=== PATIENT | female | born 1955 | race Caucasian/White ===

== ENCOUNTER 2023-01-19 07:14 | Outpatient (OUT) | payer BC, SELFPAY ==
--- NOTE | 2023-01-19 07:32 | MM_ITS ---
Patient Name: RICK DOCKERY MR#: [id number] : 1955 Exam Date: 01/19/2023 Ordering Doctor: SANDRINE JULIO CNP RADIOLOGY REPORT PROCEDURE: MM TOMOSYNTHESIS SCREENING BI COMPARISON: MG MAMM SCREEN 3D [place] CAD, 12/27/2021. MG MAMM SCREEN 3D [place] CAD, 09/03/2020. INDICATIONS: Screening Calculator Name NCI Breast Cancer Risk Assessment Tool 5 Year Breast Cancer Risk 3.80% Lifetime Breast Cancer Risk 14.00% Personal Breast Cancer No Personal Ovarian Cancer No Treatments None Family Cancers Aunt-maternal with breast cancer at age 83; Sister with breast cancer at age 67. LOCATION: [facility] BREAST COMPOSITION: Heterogeneously dense,which may obscure small masses. FINDINGS: DIAGNOSTIC CATEGORY 2--BENIGN FINDING: RIGHT BREAST: No significant suspicious finding. Scattered benign-appearing lymph nodes are present. No significant change has occurred. LEFT BREAST: No significant suspicious finding. Scattered benign-appearing lymph nodes are present. No significant change has occurred. RECOMMENDATIONS: ROUTINE MAMMOGRAM AND CLINICAL EVALUATION IN 12 MONTHS. PLEASE NOTE: A NORMAL MAMMOGRAM DOES NOT EXCLUDE THE POSSIBILITY OF BREAST CANCER. A CLINICALLY SUSPICIOUS PALPABLE LUMP SHOULD BE BIOPSIED. Dictated by: Chaparro Urbina M.D. on 01/23/2023 at 13:52 Approved by: Chaparro Urbina M.D. on 01/23/2023 at 13:55
== END 2023-01-19 07:15 | disposition home or self-care (01) ==
LOC: MAMMO 07:24
PROVIDERS: PCP Nurse Practitioner Family; Visit Provider Nurse Practitioner Family
DX: Z12.31 Encounter for screening mammogram for malignant neoplasm of breast (principal); Z80.3 Family history of malignant neoplasm of breast
CPT/HCPCS: 77063; 77067

== ENCOUNTER 2024-01-28 09:09 | Outpatient (OUT) | payer MEDICARE, SELFPAY ==
--- NOTE | 2024-01-28 09:18 | MM_ITS ---
Patient Name: RICK DOCKERY MR#: [id number] : 1955 Exam Date: 01/28/2024 Ordering Doctor: SANDRINE JULIO CNP RADIOLOGY REPORT PROCEDURE: MM TOMOSYNTHESIS SCREENING BI COMPARISON: MM TOMOSYNTHESIS SCREENING BI, 01/19/2023. MG MAMM SCREEN 3D [place] CAD, 12/27/2021. MG MAMM SCREEN 3D [place] CAD, 09/03/2020. INDICATIONS: Screening for malignant neoplasm Calculator Name NCI Breast Cancer Risk Assessment Tool 5 Year Breast Cancer Risk 3.90% Lifetime Breast Cancer Risk 13.50% Personal Breast Cancer No Personal Ovarian Cancer No Treatments None Family Cancers Aunt-maternal with breast cancer at age 83; Sister with breast cancer at age 67. LOCATION: [facility] BREAST COMPOSITION: The breasts are heterogeneously dense,which may obscure small masses. FINDINGS: DIAGNOSTIC CATEGORY 1--NEGATIVE. RIGHT BREAST: No significant suspicious finding. No significant change has occurred. LEFT BREAST: No significant suspicious finding. No significant change has occurred. RECOMMENDATIONS: ROUTINE MAMMOGRAM AND CLINICAL EVALUATION IN 12 MONTHS. PLEASE NOTE: A NORMAL MAMMOGRAM DOES NOT EXCLUDE THE POSSIBILITY OF BREAST CANCER. A CLINICALLY SUSPICIOUS PALPABLE LUMP SHOULD BE BIOPSIED. Dictated by: Chaparro Urbina M.D. on 01/28/2024 at 16:04 Approved by: Chaparro Urbina M.D. on 01/28/2024 at 16:08
--- OUTSIDE RECORDS SUMMARY | 2024-01-28 09:32 | XMS_ITS | CCD ---
Author Organization [facility] ion Partnership [facility] Care Team Providers Care Baseball Glove Stuffer Name Role Phone Maurice Asher Unavailable [phone] MAURICE ASHER Attending Unavailable MAURICE ASHER Referring Unavailable MAURICE ASHER Primary Care Unavailable Maurice Asher Primary Care Provider Maurice Asher Primary Care Provider Maurice Asher MD Primary Care Provider [phone] Maurice Asher MD Unavailable Maurice Asher MD Unavailable Geoffrey Doll DO Primary Care Provider Geoffrey Doll DO Primary Care Provider Maurice Asher MD Unavailable LAVON, GEOFFREY SNEHAL Primary Care Unavailable FILEMON PICHARDO Attending Unavailable LAVONGEOFFREY Primary Care Unavailable LAVONGEOFFREY Admitting Unavailable Maurice Asher MD Unavailable [phone] Lavon DO, Geoffrey Snehal Unavailable Lavonlety KRAMER, Geoffrey Snehal Unavailable MAURICE ASHER Attending Unavailable MAURICE ASHER Primary Care Unavailable LAVONGEOFFREY Attending Unavailable LAVNOGEOFFREY Attending Unavailable LAVON, GEOFFREY SNEHAL Primary Care Unavailable LAVONGEOFFREY Attending Unavailable LAVON, GEOFFREY SNEHAL Primary Care Unavailable LAVON, GEOFFREY GERBER Attending Unavailable LAVON, GEOFFREY SNEHAL Primary Care Unavailable SANDRINE JULIO Attending Unavailable DR GEOVANNY RAMIRES V Consulting Unavailable SUMANTH, SANDRINE Admitting Unavailable SUMANTH, SANDRINE Consulting Unavailable SUMANTH, SANDRINE Admitting Unavailable SUMANTH, SANDRINE Attending Unavailable DR RADHA FITZGERALD Consulting Unavailable SUMANTH, SANDRINE Primary Care Unavailable SUMANTH, SANDRINE Attending Unavailable SUMANTH, SANDRINE Consulting Unavailable SUMANTH, SANDRINE Primary Care Unavailable SUMANTH, SANDRINE Admitting Unavailable SUMANTH, SANDRINE Attending Unavailable SUMANTH, SANDRINE Admitting Unavailable GEOFFREY DOLL Attending Unavailable GEOFFREY DOLL Primary Care Unavailable SNEHAL VORA Attending Unavailable Allergies Allergy Classification Reported Allergen(s) Allergy Type Date of Onset Reaction(s) Facility (16 sources) Formaldehyde; Translations: [FORMALDEHYDE] Drug Allergy 12-10-2020 Rash [facility] Medications Current Medications Medication Drug Class(es) Dates Sig (Normalized) Sig (Original) amoxicillin 875 mg / clavulanate 125 mg oral tablet (2 sources) Penicillin-class Antibacterial Start: 05-01-19 End: 05-11-19 21 take 1 tablet by mouth twice daily amoxicillin-clavulanat e (AUGMENTIN) 875-125 mg per tablet Take 1 (one) tablet by mouth 2 (two) times a day for 10 days . 20 tablet 0 04/30/2020 05/10/2020 Active Azithromycin (10 sources) Macrolide Antimicrobial Start: 04-07-19 21 take 2 tablets by mouth once daily, then take 1 tablet by mouth, then take 1 tablet by mouth once daily azithromycin (Z-GEREMIAS) 5 day dose pack Take two tablets by mouth on day 1, then one tablet by mouth daily until finished. . 6 tablet 0 04/07/2020 Active benzonatate 100 mg oral capsule (2 sources) Non-narcotic Antitussive Start: 05-01-19 End: 05-08-19 21 take 1 capsule by mouth three times daily as needed for cough benzonatate (TESSALON) 100 MG capsule Take 1 (one) capsule (100 mg total) by mouth 3 (three) times a day as needed for cough . 20 capsule 0 04/30/2020 05/07/2020 Active famotidine 20 mg oral tablet (1 source) Histamine-2 Receptor Antagonist take 1 tablet by mouth twice daily famotidine (PEPCID) 20 MG tablet Take 20 mg by mouth 2 (two) times a day . 0 Active hydroCHLOROthiazide 25 mg oral tablet (20 sources) Thiazide Diuretic Start: 08-27-19 End: 01-21-20 take 1 tablet by mouth once daily hydroCHLOROthiazide (HYDRODIURIL) 25 MG tablet Take 1 (one) tablet (25 mg total) by mouth daily . 90 tablet 3 01/25/2021 01/20/2022 Active Start: 04-27-2017 End: 02-22-2019 take 1 tablet by mouth once daily hydroCHLOROthiazide (HYDRODIURIL) 25 MG tablet Take 1 (one) tablet (25 mg total) by mouth daily. 30 tablet 2 11/14/2017 02/22/2018 Discontinued hydrOXYzine pamoate 25 mg oral capsule (20 sources) Antihistamine Start: 10-14-2019 End: 10-12-2021 take 1 capsule by mouth three times daily as needed for anxiety hydrOXYzine (VISTARIL) 25 MG capsule Take 1 (one) capsule (25 mg total) by mouth 3 (three) times a day as needed for itching or anxiety . 90 capsule 1 06/01/2021 Active melatonin 5 mg oral tablet (13 sources) melatonin 5 mg Tab Take by mouth . 0 Active meloxicam 15 mg oral tablet (3 sources) Nonsteroidal Anti-inflammatory Drug Start: 08-15-2016 End: 08-15-2017 take 1 tablet by mouth once daily as needed for pain meloxicam (MOBIC) 15 MG tablet Take 1 (one) tablet (15 mg total) by mouth daily as needed for pain. 30 tablet 2 08/15/2016 08/15/2017 Active 24 hr metoprolol succinate 50 mg extended release oral tablet (6 sources) beta-Adrenergic Tod Start: 06-24-2021 End: 03-21-2022 take 1 tablet by mouth once daily metoprolol succinate (TOPROL-XL) 50 MG 24 hr tablet Take 1 (one) tablet (50 mg total) by mouth daily . 90 tablet 2 06/24/2021 03/21/2022 Active Start: 03-12-2017 End: 03-12-2018 take 0.5 tablet by mouth once daily metoprolol succinate (TOPROL-XL) 50 MG 24 hr tablet Take 0.5 (one-half) tablet (25 mg total) by mouth daily. 30 tablet 2 03/12/2017 03/12/2018 Active Start: 12-12-2016 End: 03-12-2017 take 1 tablet by mouth once daily metoprolol succinate (TOPROL-XL) 25 MG 24 hr tablet Take 1 (one) tablet (25 mg total) by mouth daily. 30 tablet 5 12/12/2016 03/12/2017 Discontinued montelukast 10 mg oral tablet (20 sources) Leukotriene Receptor Antagonist Start: 03-15-2020 End: 01-25-2022 take 1 tablet by mouth once daily montelukast (SINGULAIR) 10 mg tablet Take 1 (one) tablet (10 mg total) by mouth nightly . 90 tablet 3 01/25/2021 01/25/2022 Active omeprazole 40 mg delayed release oral capsule (18 sources) Proton Pump Inhibitor Start: 02-22-2018 End: 04-29-2021 take 1 capsule by mouth once daily omeprazole (PRILOSEC) 40 MG capsule Take 1 (one) capsule (40 mg total) by mouth daily . 30 capsule 0 04/29/2020 04/29/2021 Active traZODone hydrochloride 50 mg oral tablet (20 sources) Serotonin Reuptake Inhibitor Start: 05-05-2021 End: 06-04-2021 take 1 tablet by mouth once daily traZODone (DESYREL) 50 MG tablet Take 1 (one) tablet (50 mg total) by mouth nightly . 90 tablet 0 05/05/2021 Active Start: 09-25-2019 End: 03-09-2021 take 1 tablet by mouth once daily traZODone (DESYREL) 50 MG tablet Take 1 (one) tablet (50 mg total) by mouth nightly . 90 tablet 0 02/07/2021 Active Completed/Discontinued Medications Medication Drug Class(es) Dates Sig (Normalized) Sig (Original) cetirizine hydrochloride 10 mg oral tablet (13 sources) Histamine-1 Receptor Antagonist End: 06-24-2021 take 1 tablet by mouth once daily cetirizine (ZYRTEC) 10 MG tablet Take 10 mg by mouth daily . 0 06/24/2021 Discontinued diclofenac sodium 0.01 mg/mg topical gel (2 sources) Nonsteroidal Anti-inflammatory Drug Start: 02-22-2018 End: 09-25-2019 diclofenac sodium 1 % Gel Apply 2 (two) g topically 4 (four) times a day . 1 Tube 2 02/22/2018 09/25/2019 Discontinued escitalopram 5 mg oral tablet (5 sources) Serotonin Reuptake Inhibitor Start: 02-22-2018 End: 09-25-2019 take 1 tablet by mouth once daily escitalopram oxalate (LEXAPRO) 5 MG tablet Take 1 (one) tablet (5 mg total) by mouth daily . 30 tablet 2 07/01/2018 09/25/2019 Discontinued Start: 03-12-2017 End: 03-12-2018 take 1 tablet by mouth once daily escitalopram oxalate (LEXAPRO) 10 MG tablet Take 1 (one) tablet (10 mg total) by mouth daily . 30 tablet 3 01/31/2018 02/22/2018 Discontinued propranolol hydrochloride 20 mg oral tablet (13 sources) beta-Adrenergic Tod Start: 12-27-2020 End: 06-24-2021 take 1 tablet by mouth twice daily propranoloL (INDERAL) 20 MG tablet Indications: Anxiety state , Primary hypertension Take 1 (one) tablet (20 mg total) by mouth 2 (two) times a day . 60 tablet 1 02/02/2021 06/24/2021 Discontinued Problems Active Problems Problem Classification Problem Date Documented Da te Episodic/Chronic Anxiety disorders (20 sources) Anxiety state; Translations: [Generalized anxiety disorder] Onset: 04-06-2014 07-14-2015 Chronic Esophageal disorders (15 sources) Gastro-esophageal reflux disease without esophagitis; Translations: [Laryngopharyngeal reflux] Onset: 12-12-2020 12-12-2020 Chronic Essential hypertension (20 sources) Benign essential hypertension; Translations: [Essential hypertension] Onset: 12-12-2020 12-12-2020 Chronic Fluid and electrolyte disorders (5 sources) Hyponatremia; Translations: [Hypo-osmolality and hyponatremia] Onset: 01-23-2022 Episodic Immunizations and screening for infectious disease (2 sources) Immunization due; Translations: [Encounter for immunization] Episodic Miscellaneous mental health disorders (1 source) Primary insomnia; Translations: [Primary Insomnia] Chronic Other acquired deformities (2 sources) Enlargement of neck; Translations: [Neck fullness] Episodic Other lower respiratory disease (1 source) Dry cough; Translations: [Dry cough] Episodic Other nutritional; endocrine; and metabolic disorders (1 source) Hypercalcemia; Translations: [Serum calcium elevated] Chronic Other nutritional; endocrine; and metabolic disorders (1 source) Hypocalcemia; Translations: [HYPOCALCEMIA] Onset: 01-28-2022 Chronic Other screening for suspected conditions (not mental disorders or infectious disease) (7 sources) Patient encounter status; Translations: [Encounter for screening for diseases of the blood and blood-forming organs and certain disorders involving the immune mechanism] Onset: 01-04-2022 Episodic Other upper respiratory disease (20 sources) Allergic rhinitis; Translations: [Allergic rhinitis, unspecified] Onset: 01-20-2012 07-14-2015 Chronic Residual codes; unclassified (1 source) Family history of malignant neoplasm of breast; Translations: [FAMILY HX MALIG NEOPLASM OF BREAST] Onset: 01-04-2022 Episodic Screening or history of mental health and substance abuse (20 sources) Tobacco user; Translations: [Nicotine dependence, unspecified, uncomplicated] Onset: 07-07-2008 07-14-2015 Chronic Thyroid disorders (13 sources) Multinodular goiter; Translations: [Nontoxic multinodular goiter] Onset: 12-12-2020 12-12-2020 Chronic Unclassified (1 source) Patient encounter status; Translations: [Annual physical exam] Past or Other Problems Problem Classification Problem Date Documented Da te Episodic/Chronic Allergic reactions (14 sources) Vesicular eczema of hands and/or feet; Translations: [Vesicular eczema] Onset: 07-07-2008 07-14-2015 Episodic Other circulatory disease (20 sources) Elevated blood-pressure reading without diagnosis of hypertension; Translations: [Elevated blood-pressure reading, without diagnosis of hypertension] Onset: 09-29-2015 Resolved: 12-12-2020 09-29-2015 Episodic Other connective tissue disease (20 sources) Tendinitis; Translations: [Enthesopathy, unspecified] Onset: 08-15-2016 08-15-2016 Episodic Other gastrointestinal disorders (20 sources) Abdominal bloating; Translations: [Abdominal distension (gaseous)] Onset: 09-29-2015 09-29-2015 Episodic Other skin disorders (18 sources) Vesicular eczema; Translations: [Dyshidrosis [pompholyx]] Onset: 07-07-2008 07-14-2015 Episodic Results Test Name Value Interpretation Reference Range Facility PROF 14(COMP METB)on 022 Albumin [Mass/Vol] 3.8 g/dL Normal 3.4-5.0 [facility] Comment on above: Performed By: #### C MP #### [facility] [address] [address] [address] Shavonne Abraham Albumin/Globulin [Mass ratio] 0.9 {ratio} Normal [facility] Comment on above: Performed By: #### C MP #### [facility] [address] [address] [address] Shavonne Abraham ALP [Catalytic activity/Vol] 140 U/L Critically high 46-116 [facility] Comment on above: Performed By: #### C MP #### [facility] [address] [address] [address] Shavonne Abraham ALT [Catalytic activity/Vol] 27 U/L Normal 14-59 [facility] Comment on above: Performed By: #### C MP #### [facility] [address] [place] [address] Dr. Shavonne Abraham Anion gap [Moles/Vol] 14.3 mmol/L Normal [facility] Comment on above: Performed By: #### C MP #### [facility] [address] [place] [address] Dr. Shavonne Abraham AST [Catalytic activity/Vol] 24 U/L Normal 15-37 [facility] Comment on above: Performed By: #### C MP #### [facility] [address] [place] [address] Dr. Shavonne Abraham Bilirubin [Mass/Vol] 0.4 mg/dL Normal 0.2-1.0 [facility] Comment on above: Performed By: #### C MP #### [facility] [address] [place] [address] Dr. Shavonne Abraham Calcium [Mass/Vol] 9.8 mg/dL Normal 8.5-10.1 [facility] Comment on above: Performed By: #### C MP #### [facility] [address] [place] [address] Dr. Shavonne Abraham Chloride [Moles/Vol] 99 mmol/L Normal 98-107 [facility] Comment on above: Performed By: #### C MP #### [facility] [address] [address] [address] Shavonne Abraham CO2 [Moles/Vol] 25.9 mmol/L Normal 21.0-32.0 [facility] Comment on above: Performed By: #### C MP #### [facility] [address] [place] [address] Dr. Shavonne Abraham Creatinine [Mass/Vol] 0.87 mg/dL Normal 0.55-1.[address] [facility] Comment on above: Performed By: #### C MP #### [facility] [address] [address] [address] Shavonne Abraham EGFR-AF SPANISH >60 Normal >=60 [facility] Comment on above: Performed By: #### C MP #### [facility] [address] [place] [address] Dr. Shavonne Abraham EGFR-NON AF SPANISH >60 Normal >=[address] [facility] Comment on above: Performed By: #### C MP #### [facility] [address] [address] [address] Shavonne Abraham Globulin (S) [Mass/Vol] 4.2 g/dL Normal [facility] Comment on above: Performed By: #### C MP #### [facility] [address] [address] [address] Shavonne Abraham Glucose [Mass/Vol] 90 mg/dL Normal 74-106 [facility] Comment on above: Performed By: #### C MP #### [facility] [address] [place] [address] Dr. Shavonne Abraham Potassium [Moles/Vol] 4.2 mmol/L Normal 3.5-5.[address] [facility] Comment on above: Performed By: #### C MP #### [facility] [address] [place] [address] Dr. Shavonne Abraham Protein [Mass/Vol] 8.0 g/dL Normal 6.4-8.2 [facility] Comment on above: Performed By: #### C MP #### [facility] [address] [place] [address] Dr. Shavonne Abraham Sodium [Moles/Vol] 135 mmol/L Critically low 136-[address] [facility] Comment on above: Performed By: #### C MP #### [facility] [address] [place] [address] Dr. Shavonne Abraham Urea nitrogen [Mass/Vol] 15.0 mg/dL Normal 7.0-18.0 [facility] Comment on above: Performed By: #### C MP #### [facility] [address] [place] [address] Dr. Shavonne Abraham Urea nitrogen/Creatinine [Mass ratio] 17.2 mg/mg Normal [facility] Comment on above: Performed By: #### C MP #### [facility] [address] [place] [address] Dr. Shavonne Abraham PROF 14(COMP METB)on 022 Albumin [Mass/Vol] 3.8 g/dL Normal 3.4-5.0 [facility] Comment on above: Performed By: #### C MP #### [facility] [address] [place] [address] Dr. Shavonne Abraham Albumin/Globulin [Mass ratio] 0.9 {ratio} Normal [facility] Comment on above: Performed By: #### C MP #### [facility] [address] [place] [address] Dr. Shavonne Abraham ALP [Catalytic activity/Vol] 146 U/L Critically high 46-116 [facility] Comment on above: Performed By: #### C MP #### [facility] [address] [place] [address] Dr. Shavonne Abraham ALT [Catalytic activity/Vol] 43 U/L Normal 14-59 [facility] Comment on above: Performed By: #### C MP #### [facility] [address] [place] [address] Dr. Shavonne Abraham Anion gap [Moles/Vol] 11.9 mmol/L Normal [facility] Comment on above: Performed By: #### C MP #### [facility] [address] [place] [address] Dr. Shavonne Abraham AST [Catalytic activity/Vol] 44 U/L Critically high 15-37 [facility] Comment on above: Performed By: #### C MP #### [facility] [address] [address] [address] Shavonne Abraham Bilirubin [Mass/Vol] 0.2 mg/dL Normal 0.2-1.0 [facility] Comment on above: Performed By: #### C MP #### [facility] [address] [address] [address] Shavonne Abraham Calcium [Mass/Vol] 9.2 mg/dL Normal 8.5-10.1 [facility] Comment on above: Performed By: #### C MP #### [facility] [address] [address] [address] Shavonne Abraham Chloride [Moles/Vol] 89 mmol/L Critically low 98-107 [facility] Comment on above: Performed By: #### C MP #### [facility] [address] [address] [address] Shavonne Abraham CO2 [Moles/Vol] 28.3 mmol/L Normal 21.0-32.0 [facility] Comment on above: Performed By: #### C MP #### [facility] [address] [address] [address] Shavonne Abraham Creatinine [Mass/Vol] 0.94 mg/dL Normal 0.55-1.02 [facility] Comment on above: Performed By: #### C MP #### [facility] [address] [address] [address] Shavonne Abraham EGFR-AF SPANISH >60 Normal >=60 [facility] Comment on above: Performed By: #### C MP #### [facility] [address] [address] [address] Shavonne Abraham EGFR-NON AF SPANISH 60 mL/min/1.73m2 Normal >=60 [facility] Comment on above: Performed By: #### C MP #### [facility] [address] [address] [address] Shavonne Abraham Globulin (S) [Mass/Vol] 4.1 g/dL Normal [facility] Comment on above: Performed By: #### C MP #### [facility] [address] [address] [address] Shavonne Abraham Glucose [Mass/Vol] 111 mg/dL Critically high 74-106 [facility] Comment on above: Performed By: #### C MP #### [facility] [address] [address] [address] Shavonne Abraham Potassium [Moles/Vol] 3.2 mmol/L Critically low 3.5-5.1 [facility] Comment on above: Performed By: #### C MP #### [facility] [address] [address] [address] Shavonne Abraham Protein [Mass/Vol] 7.9 g/dL Normal 6.4-8.2 [facility] Comment on above: Performed By: #### C MP #### [facility] [address] [address] [address] Shavonne Abraham Sodium [Moles/Vol] 126 mmol/L Critically low 136-[address] [facility] Comment on above: Performed By: #### C MP #### [facility] [address] [address] [address] Shavonne Abraham Urea nitrogen [Mass/Vol] 19.0 mg/dL Critically high 7.0-18.0 [facility] Comment on above: Performed By: #### C MP #### [facility] [address] [address] [address] Shavonne Abraham Urea nitrogen/Creatinine [Mass ratio] 20.2 mg/mg Normal [facility] Comment on above: Performed By: #### C MP #### [facility] [address] [address] [address] Shavonne Abraham INSULINon 12-28-2021 Insulin 13.7 uIU/mL Normal 2.6-24.9 [facility] Comment on above: Performed By: #### I NSULIN #### [facility] [address] [address] [address] Shavonne Abraham CBC AUTO DIFFon 12-27-2021 BASO # 0.1 103/ul Normal 0.0-0.1 [facility] Comment on above: Performed By: #### C BC #### [facility] [address] [address] [address] Shavonne Abraham Basophils/100 WBC (Bld) 0.8 % Normal 0.2-2.0 [facility] Comment on above: Performed By: #### C BC #### [facility] [address] [address] [address] Shavonne Abraham EO # 0.6 103/ul Normal 0.0-0.[address] [facility] Comment on above: Performed By: #### C BC #### [facility] [address] [address] [address] Shavonne Abraham Eosinophils/100 WBC (Bld) 7.1 % Critically high 0.9-7.0 [facility] Comment on above: Performed By: #### C BC #### [facility] [address] [place] [address] Dr. Shavonne Abraham Erythrocyte distribution width (RBC) [Ratio] 13.2 % Normal 11.0-15.0 [facility] Comment on above: Performed By: #### C BC #### [facility] [address] [place] [address] Dr. Shavonne Abraham Hematocrit (Bld) [Volume fraction] 40.3 % Normal 36.0-48.0 [facility] Comment on above: Performed By: #### C BC #### [facility] [address] [place] [address] Dr. Shavonne Abraham Hemoglobin (Bld) [Mass/Vol] 13.5 g/dL Normal 12.0-16.0 [facility] Comment on above: Performed By: #### C BC #### [facility] [address] [place] [address] Dr. Shavonne Abraham IG # 0.01 10e3/ul Normal 0.00-0.03 [facility] Comment on above: Performed By: #### C BC #### [facility] [address] [place] [address] Dr. Shavonne Abraham IG % 0.1 % Normal 0.0-0.[address] [facility] Comment on above: Performed By: #### C BC #### [facility] [address] [place] [address] Dr. Shavonne Abraham LYMPH # 1.9 103/ul Normal 1.2-3.8 [facility] Comment on above: Performed By: #### C BC #### [facility] [address] [place] [address] Dr. Shavonne Abraham Lymphocytes/100 WBC (Bld) 24.4 % Normal 20.5-60.0 [facility] Comment on above: Performed By: #### C BC #### [facility] [address] [place] [address] Dr. Shavonne Abraham MANUAL DIFF REQ NO Normal [facility] Comment on above: Performed By: #### C BC #### [facility] [address] [place] [address] Dr. Shavonne Abraham MCH (RBC) [Entitic mass] 28.7 pg Normal 26.7-34.0 [facility] Comment on above: Performed By: #### C BC #### [facility] [address] [place] [address] Dr. Shavonne Abraham MCHC (RBC) [Mass/Vol] 33.5 g/dL Normal 29.9-35.[address] [facility] Comment on above: Performed By: #### C BC #### [facility] [address] [place] [address] Dr. Shavonne Abraham MCV (RBC) [Entitic vol] 85.7 fL Normal 81.0-99.0 [facility] Comment on above: Performed By: #### C BC #### [facility] [address] [place] [address] Dr. Shavonne Abraham MONO # 0.6 103/ul Normal 0.3-0.[address] [facility] Comment on above: Performed By: #### C BC #### [facility] [address] [place] [address] Dr. Shavonne Abraham Monocytes/100 WBC (Bld) 8.0 % Normal 1.7-12.[address] [facility] Comment on above: Performed By: #### C BC #### [facility] [address] [place] [address] Dr. Shavonne Abraham NEUT # 4.6 103/ul Normal 1.4-6.[address] [facility] Comment on above: Performed By: #### C BC #### [facility] [address] [place] [address] Dr. Shavonne Abraham Neutrophils/100 WBC (Bld) 59.6 % Normal 43.0-75.[address] [facility] Comment on above: Performed By: #### C BC #### [facility] [address] [place] [address] Dr. Shavonne Abraham Platelet mean volume (Bld) [Entitic vol] 10.6 fL Normal 9.5-13.[address] [facility] Comment on above: Performed By: #### C BC #### [facility] [address] [place] [address] Dr. Shavonne Abraham PLT 272 103/ul Normal 150-[address] [facility] Comment on above: Performed By: #### C BC #### [facility] [address] [place] [address] Dr. Shavonne Abraham RBC 4.70 106/ul Normal 4.20-5.[address] [facility] Comment on above: Performed By: #### C BC #### [facility] [address] [place] [address] Dr. Shavonne Abraham WBC 7.8 103/ul Normal 4.0-11.[address] [facility] Comment on above: Performed By: #### C BC #### [facility] [address] [place] [address] Dr. Shavonne Abraham FREE THYROXINE INDEX T7on FTI 2.80 Normal 1.30-4.[address] [facility] Comment on above: Performed By: #### L IPID, T7, TSH, CMP #### [facility] [address] [place] [address] Dr. Shavonne Abraham T3U 35.0 % Normal 30.0-39.[address] [facility] Comment on above: Performed By: #### L IPID, T7, TSH, CMP #### [facility] [address] [address] [address] Shavonne Abraham T4 [Mass/Vol] 8.00 ug/dL Normal 4.80-13.90 [facility] Comment on above: Performed By: #### L IPID, T7, TSH, CMP #### [facility] [address] [address] [address] Shavonne Abraham GLYCOHEMOGLOBIN A1Con 2021 ADA RECOMMENDATION SEE BELOW Normal [facility] Comment on above: Result Comment: ADA RECOMMENDED LIMIT 4.0 - 6.0 ADA THERAPEUTIC TARGET < 7.0 ACTION SUGGESTED > 7.0 Performed By: #### A 1C ####[facility] [address] [address]Dr. Shavonne Abraham Glucose [Mass/Vol] 117 mg/dL Normal [facility] Comment on above: Performed By: #### A 1C ####[facility] [address] [address]Dr. Shavonne Abraham HbA1c (Bld) [Mass fraction] 5.7 % Normal 4.5-6.2 [facility] Comment on above: Performed By: #### A 1C ####[facility] [address] [address]Dr. Shavonne Abraham IRONon 12-27-2021 Iron [Mass/Vol] 38.0 ug/dL Critically low 50.0-170.0 [facility] Comment on above: Performed By: #### I TOYIN #### [facility] [address] [address] [address] Shavonne Abraham LIPID PROFILEon 12-27-2021 CHOL-HDL RATIO NORM SEE BELOW Normal [facility] Comment on above: Result Comment: 3.3 - 4.4 LOW RISK 4.4 - 7.1 AVERAGE RISK 7.1 - 11.0 MODERATE RISK >11.0 HIGH RISK Performed By: #### L IPID, T7, TSH, CMP #### [facility] [address] [address] [address] Shavonne Abraham Cholesterol [Mass/Vol] 193 mg/dL Normal <=[address] [facility] Comment on above: Performed By: #### L IPID, T7, TSH, CMP #### [facility] [address] [address] [address] Shavonne Abraham Cholesterol in HDL [Mass/Vol] 76 mg/dL Critically high 40-60 [facility] Comment on above: Performed By: #### L IPID, T7, TSH, CMP #### [facility] [address] [address] [address] Shavonne Abraham Cholesterol in LDL [Mass/Vol] 110.2 mg/dL Normal [facility] Comment on above: Performed By: #### L IPID, T7, TSH, CMP #### [facility] [address] [address] [address] Shavonne Abraham Cholesterol.total/Cho lesterol in HDL [Mass ratio] 2.5 {ratio} Normal [facility] Comment on above: Performed By: #### L IPID, T7, TSH, CMP #### [facility] [address] [address] [address] Shavonne Abraham HDL NORMAL > or = 60 mg/dl - LOW CARDIOVASCULAR RISK <40 mg/dl - HIGH CARDIOVASCULAR RISK Normal [facility] Comment on above: Performed By: #### L IPID, T7, TSH, CMP #### [facility] [address] [address] [address] Shavonne Abraham LDL CALC NORMAL SEE BELOW Normal [facility] Comment on above: Result Comment: <100 mg/dl OPTIMAL 100 - 129 mg/dl NEAR OR ABOVE OPTIMAL 130 - 159 mg/dl BORDERLINE HIGH 160 - 189 mg/dl HIGH >190 mg/dl VERY HIGH Performed By: #### L IPID, T7, TSH, CMP #### [facility] [address] [address] [address] Shavonne Abraham Triglyceride [Mass/Vol] 34 mg/dL Normal <=150 [facility] Comment on above: Performed By: #### L IPID, T7, TSH, CMP #### [facility] [address] [address] [address] Shavonne Abraham VLDL CALC 6.8 mg/dL Normal [facility] Comment on above: Performed By: #### L IPID, T7, TSH, CMP #### [facility] [address] [address] [address] Shavonne Abraham MG MAMM SCREEN 3D [place] CADon 12-27-2021 MG MAMM SCREEN 3D [place] CAD Patient: SHARA DOCKERY Exam Date: 12/27/2021 : 1955 Gender:F Ordering : SANDRINE JULIO [facility] Admission #: [id number] Family : Order #: [id number] CLICK HERE TO VIEW EXAM RADIOLOGY REPORT PROCEDURE: MAMMOGRAM SCREENING 3D BILATERAL CAD COMPARISON: MG MAMM SCREEN 3D [place] CAD, 09/03/2020. INDICATIONS: Screening mammography Calculator Name NCI Breast Cancer Risk Assessment Tool 5 Year Breast Cancer Risk 3.70% Lifetime Breast Cancer Risk 14.40% Personal Breast Cancer No Personal Ovarian Cancer No Treatments None Family Cancers Aunt-maternal with breast cancer at age 83; Sister with breast cancer at age 67. LOCATION: [facility] BREAST COMPOSITION: Heterogeneously dense,which may obscure small masses. FINDINGS: DIAGNOSTIC CATEGORY 2--BENIGN FINDING. NO CHANGE FROM COMPARISON. Scattered benign-appearing nodules are present. Scattered benign-appearing calcifications are present. Scattered benign-appearing lymph nodes are present. RIGHT BREAST: No significant suspicious finding. Linear scar marker LEFT BREAST: No significant suspicious finding. RECOMMENDATIONS: ROUTINE MAMMOGRAM AND CLINICAL EVALUATION IN 12 MONTHS. PLEASE NOTE: A NORMAL MAMMOGRAM DOES NOT EXCLUDE THE POSSIBILITY OF BREAST CANCER. A CLINICALLY SUSPICIOUS PALPABLE LUMP SHOULD BE BIOPSIED. Dictated by: Geovanny Ramires MD on 01/04/2022 at 07:06 Approved by: Geovanny Ramires MD on 01/04/2022 at 07:08 Normal [facility] PROF 14(COMP METB)on 022 Albumin [Mass/Vol] 3.9 g/dL Normal 3.4-5.0 [facility] Comment on above: Performed By: #### L IPID, T7, TSH, CMP #### [facility] [address] [place], [place] [address] Dr. Shavonne Abraham Albumin/Globulin [Mass ratio] 1.0 {ratio} Normal [facility] Comment on above: Performed By: #### L IPID, T7, TSH, CMP #### [facility] [address] [address] [address] Shavonne Abraham ALP [Catalytic activity/Vol] 150 U/L Critically high 46-116 [facility] Comment on above: Performed By: #### L IPID, T7, TSH, CMP #### [facility] [address] [address] [address] Shavonne Abraham ALT [Catalytic activity/Vol] 24 U/L Normal 14-59 [facility] Comment on above: Performed By: #### L IPID, T7, TSH, CMP #### [facility] [address] [address] [address] Shavonne Abraham Anion gap [Moles/Vol] 9.3 mmol/L Normal [facility] Comment on above: Performed By: #### L IPID, T7, TSH, CMP #### [facility] [address] [place] [address] Dr. Shavonne Abraham AST [Catalytic activity/Vol] 20 U/L Normal 15-37 [facility] Comment on above: Performed By: #### L IPID, T7, TSH, CMP #### [facility] [address] [address] [address] Shavonne Abraham Bilirubin [Mass/Vol] 0.3 mg/dL Normal 0.2-1.0 [facility] Comment on above: Performed By: #### L IPID, T7, TSH, CMP #### [facility] [address] [address] [address] Shavonne Abraham Calcium [Mass/Vol] 9.8 mg/dL Normal 8.5-10.1 [facility] Comment on above: Performed By: #### L IPID, T7, TSH, CMP #### [facility] [address] [address] [address] Shavonne Abraham Chloride [Moles/Vol] 93 mmol/L Critically low 98-107 [facility] Comment on above: Performed By: #### L IPID, T7, TSH, CMP #### [facility] [address] [address] [address] Shavonne Abraham CO2 [Moles/Vol] 31.6 mmol/L Normal 21.0-32.0 [facility] Comment on above: Performed By: #### L IPID, T7, TSH, CMP #### [facility] [address] [place] [address] Dr. Shavonne Abraham Creatinine [Mass/Vol] 0.90 mg/dL Normal 0.55-1.02 [facility] Comment on above: Performed By: #### L IPID, T7, TSH, CMP #### [facility] [address] [place] [address] Dr. Shavonne Abraham EGFR-AF SPANISH >60 Normal >=60 [facility] Comment on above: Performed By: #### L IPID, T7, TSH, CMP #### [facility] [address] [place] [address] Dr. Shavonne Abraham EGFR-NON AF SPANISH >60 Normal >=60 [facility] Comment on above: Performed By: #### L IPID, T7, TSH, CMP #### [facility] [address] [place] [address] Dr. Shavonne Abraham Globulin (S) [Mass/Vol] 4.1 g/dL Normal [facility] Comment on above: Performed By: #### L IPID, T7, TSH, CMP #### [facility] [address] [place] [address] Dr. Shavonne Abraham Glucose [Mass/Vol] 109 mg/dL Critically high 74-106 [facility] Comment on above: Performed By: #### L IPID, T7, TSH, CMP #### [facility] [address] [place] [address] Dr. Shavonne Abraham Potassium [Moles/Vol] 3.9 mmol/L Normal 3.5-5.1 [facility] Comment on above: Performed By: #### L IPID, T7, TSH, CMP #### [facility] [address] [place] [address] Dr. Shavonne Abraham Protein [Mass/Vol] 8.0 g/dL Normal 6.4-8.2 [facility] Comment on above: Performed By: #### L IPID, T7, TSH, CMP #### [facility] [address] [place], [place] [address] Dr. Shavonne Abraham Sodium [Moles/Vol] 130 mmol/L Critically low 136-[address] [facility] Comment on above: Performed By: #### L IPID, T7, TSH, CMP #### [facility] [address] [address] [address] Shavonne Abraham Urea nitrogen [Mass/Vol] 17.0 mg/dL Normal 7.0-18.0 [facility] Comment on above: Performed By: #### L IPID, T7, TSH, CMP #### [facility] [address] [address] [address] Shavonne Abraham Urea nitrogen/Creatinine [Mass ratio] 18.9 mg/mg Normal [facility] Comment on above: Performed By: #### L IPID, T7, TSH, CMP #### [facility] [address] [address] [address] Shavonne Abraham TSHon 12-27-2021 TSH 0.964 uIU/mL Normal 0.358-3.740 [facility] Comment on above: Performed By: #### L IPID, T7, TSH, CMP #### [facility] [id number] Shavonne Abraham US THYROID ONLYon 10-10-2019 US THYROID ONLY EXAMINATION: US THYROID ONLY HISTORY: ORDERING SYSTEM PROVIDED HISTORY: swelling of neck, TECHNOLOGIST PROVIDED HISTORY: Illness/Other Reason for exam: neck fullness Cancer History: n Surgery, RadiationHistory: n Encounter Type: Initial Additional signs and symptoms: n ORDERING SYSTEM PROVIDED DIAGNOSIS CODES: R22.1 Neck fullness COMPARISON: None. TECHNIQUE: Grayscale and color imaging of the thyroid performed. FINDINGS: Right thyroid measures 5.8 x 2.1 x 1.9 cm and the left measures 4.7 x 1.8 x 1.5 cm. Isthmus measures 0.4 cm in AP dimension. Hypoechoic TI-RADS category 4 nodule within the inferior right thyroid measures 0.7 x 0.8 x 0.5 cm. There is additional hypoechoic solid TI-RADS category 4 nodule in the mid right thyroid measuring 0.6 x 0.5 x 0.5 cm. Hypoechoic TI-RADS category 4 nodule in the upper right thyroid measures 0.5 x 0.5 x 0.4 cm. Within the left thyroid is a isoechoic TI-RADS category 3 solid nodule involving the midportion of the thyroid measuring 1.1 x 1.0 x 1.0 cm. There is a benign cystic-appearing nodule within the mid left thyroid which measures approximately 0.4 x 0.5 x 0.3 cm. Background thyroid parenchyma is relatively homogeneous. There is a prominent benign-appearing lymph node within the left neck, level II. The lymph node measures 0.6 x 1.0 x 1.3 cm containing echogenic fat. A prominent benign-appearing lymph node on the right side at level I measures 1.9 x 1.5 x 0.8 cm. Prominent lymph node in the left neck, level I with echogenic fatty hilum measures 2.9 x 1.7 x 0.7 cm. IMPRESSION: Multiple thyroid nodules as detailed in the body of the report. None of the nodules meet criteria for biopsy. Bilateral neck prominent benign-appearing lymph nodes all of which have a short axis dimension of less than 1 cm. The [employer] TI-RADS committee's white paper recommendations for thyroid lesions classified as TR3 (mildly suspicious) are listed below: > than or equal to 1.5 cm. Follow-up ultrasound in 1, 3, and 5 years. > than or equal to 2.5 cm. FNA. J. Am Joshua [employer]iol 2017; 14:587-595. [employer] TI-RADS committee's white paper recommendations for thyroid lesions classified as TR4 (moderately suspicious) are listed below: > than or equal to 1.0 cm. Follow-up ultrasound in 1, 2, 3, and 5 years. > than or equal to 1.5 cm. FNA. J. Am Joshua [employer]iol 2017; 14:587-595. SYJ/tde Workstation ID: [id number] Dictated by: CLAIRE CROUCH on SunOct 10, 2019 4:38:44 PM EDT Transcribed by: GIDEON NOGUERA on SunOct 10, 2019 5:13:07 PM EDT Finalized by: CLAIRE CROUCH on SunOct 10, 2019 5:34:09 PM EDT Normal [facility] Comment on above: Order Comment: Injur y/Trauma or Illness?:Illness/Other How long have you had these symptoms (acute/chronic)?:Chronic 1.5 yrs Reason for exam?:neck fullness History of cancer?:n Surgeries, chemotherapy, or radiation?:n Type of Exam?:Initial Additional signs and symptoms?:n US Thyroid Onlyon 10-10-2019 Multiple thyroid nodules as detailed in the body of the report. None of the nodules meet criteria for biopsy. Bilateral neck prominent benign-appearing lymph nodes all of which have a short axis dimension of less than 1 cm. The [employer] TI-RADS committee's white paper recommendations for thyroid lesions classified as TR3 (mildly suspicious) are listed below: > than or equal to 1.5 cm. Follow-up ultrasound in 1, 3, and 5 years. > than or equal to 2.5 cm. FNA. J. Am Joshua [employer]iol 2017; 14:587-595. [employer] TI-RADS committee's white paper recommendations for thyroid lesions classified as TR4 (moderately suspicious) are listed below: > than or equal to 1.0 cm. Follow-up ultrasound in 1, 2, 3, and 5 years. > than or equal to 1.5 cm. FNA. J. Am Joshua [employer]iol 2017; 14:587-595. [employer] Workstation ID: [id number] [facility] EXAMINATION: US THYROID ONLY HISTORY: ORDERING SYSTEM PROVIDED HISTORY: swelling of neck, TECHNOLOGIST PROVIDED HISTORY: Illness/Other Reason for exam: neck fullness Cancer History: n Surgery, RadiationHistory: n Encounter Type: Initial Additional signs and symptoms: n ORDERING SYSTEM PROVIDED DIAGNOSIS CODES: R22.1 Neck fullness COMPARISON: None. TECHNIQUE: Grayscale and color imaging of the thyroid performed. FINDINGS: Right thyroid measures 5.8 x 2.1 x 1.9 cm and the left measures 4.7 x 1.8 x 1.5 cm. Isthmus measures 0.4 cm in AP dimension. Hypoechoic TI-RADS category 4 nodule within the inferior right thyroid measures 0.7 x 0.8 x 0.5 cm. There is additional hypoechoic solid TI-RADS category 4 nodule in the mid right thyroid measuring 0.6 x 0.5 x 0.5 cm. Hypoechoic TI-RADS category 4 nodule in the upper right thyroid measures 0.5 x 0.5 x 0.4 cm. Within the left thyroid is a isoechoic TI-RADS category 3 solid nodule involving the midportion of the thyroid measuring 1.1 x 1.0 x 1.0 cm. There is a benign cystic-appearing nodule within the mid left thyroid which measures approximately 0.4 x 0.5 x 0.3 cm. Background thyroid parenchyma is relatively homogeneous. There is a prominent benign-appearing lymph node within the left neck, level II. The lymph node measures 0.6 x 1.0 x 1.3 cm containing echogenic fat. A prominent benign-appearing lymph node on the right side at level I measures 1.9 x 1.5 x 0.8 cm. Prominent lymph node in the left neck, level I with echogenic fatty hilum measures 2.9 x 1.7 x 0.7 cm. [facility] Alvaro [facility] - 10/10/2019 5:36 PM EDT EXAMINATION: US THYROID ONLY HISTORY: ORDERING SYSTEM PROVIDED HISTORY: swelling of neck, TECHNOLOGIST PROVIDED HISTORY: Illness/Other Reason for exam: neck fullness Cancer History: n Surgery, RadiationHistory: n Encounter Type: Initial Additional signs and symptoms: n ORDERING SYSTEM PROVIDED DIAGNOSIS CODES: R22.1 Neck fullness COMPARISON: None. TECHNIQUE: Grayscale and color imaging of the thyroid performed. FINDINGS: Right thyroid measures 5.8 x 2.1 x 1.9 cm and the left measures 4.7 x 1.8 x 1.5 cm. Isthmus measures 0.4 cm in AP dimension. Hypoechoic TI-RADS category 4 nodule within the inferior right thyroid measures 0.7 x 0.8 x 0.5 cm. There is additional hypoechoic solid TI-RADS category 4 nodule in the mid right thyroid measuring 0.6 x 0.5 x 0.5 cm. Hypoechoic TI-RADS category 4 nodule in the upper right thyroid measures 0.5 x 0.5 x 0.4 cm. Within the left thyroid is a isoechoic TI-RADS category 3 solid nodule involving the midportion of the thyroid measuring 1.1 x 1.0 x 1.0 cm. There is a benign cystic-appearing nodule within the mid left thyroid which measures approximately 0.4 x 0.5 x 0.3 cm. Background thyroid parenchyma is relatively homogeneous. There is a prominent benign-appearing lymph node within the left neck, level II. The lymph node measures 0.6 x 1.0 x 1.3 cm containing echogenic fat. A prominent benign-appearing lymph node on the right side at level I measures 1.9 x 1.5 x 0.8 cm. Prominent lymph node in the left neck, level I with echogenic fatty hilum measures 2.9 x 1.7 x 0.7 cm. IMPRESSION: Multiple thyroid nodules as detailed in the body of the report. None of the nodules meet criteria for biopsy. Bilateral neck prominent benign-appearing lymph nodes all of which have a short axis dimension of less than 1 cm. The [employer] TI-RADS committee's white paper recommendations for thyroid lesions classified as TR3 (mildly suspicious) are listed below: > than or equal to 1.5 cm. Follow-up ultrasound in 1, 3, and 5 years. > than or equal to 2.5 cm. FNA. J. Am Joshua Radiol 2017; 14:587-595. [employer] TI-RADS committee's white paper recommendations for thyroid lesions classified as TR4 (moderately suspicious) are listed below: > than or equal to 1.0 cm. Follow-up ultrasound in 1, 2, 3, and 5 years. > than or equal to 1.5 cm. FNA. J. Am Joshua Radiol 2017; 14:587-595. SYJ/sandiee Workstation ID: [id number] [facility] Comprehensive Metabolic Pane dereje 04-27-2017 Alanine aminotransferase (ALT) 34 U/L Invalid Interpretation Code 0 - 40 U/L [facility] Albumin 4.7 g/dL Invalid Interpretation Code 3.2 - 5.2 g/dL [facility] Alkaline phosphatase (ALP) 111 U/L Invalid Interpretation Code 40 - 150 U/L [facility] Anion gap 20 mmol/L Invalid Interpretation Code 10 - 20 mmol/L [facility] Aspartate aminotransferase (AST) 26 U/L Invalid Interpretation Code 0 - 45 U/L [facility] Bicarbonate (HCO3) 25 mmol/L Invalid Interpretation Code 21 - 32 mmol/L [facility] Bilirubin (total) 0.3 mg/dL Invalid Interpretation Code 0 - 1.3 mg/dL [facility] BUN/Creatinine Ratio 22.4 mg/mg High 10.0 - 20.0 [facility] Calcium 10.0 mg/dL Invalid Interpretation Code 8.4 - 10.2 mg/dL [facility] Chloride 101 mmol/L Invalid Interpretation Code 98 - 108 mmol/L [facility] Creatinine 0.76 mg/dL Invalid Interpretation Code 0.4 - 1.1 mg/dL [facility] eGFR (non-black) The eGFR should be used for monitoring renal function only and not for medication dosing. Invalid Interpretation Code [facility] eGFR (non-black) 86 mL/min/{1.73_m2} Invalid Interpretation Code >=60 [facility] Glucose 106 mg/dL High 65 - 99 mg/dL [facility] Potassium 5.4 mmol/L High 3.5 - 5.1 mmol/L [facility] Protein 7.3 g/dL Invalid Interpretation Code 6 - 8 g/dL [facility] Sodium 141 mmol/L Invalid Interpretation Code 135 - 145 mmol/L [facility] Urea nitrogen 17 mg/dL Invalid Interpretation Code 8 - 25 mg/dL [facility] Hemoglobin A1con 04-27-2017 Glucose 114 mg/dL Invalid Interpretation Code 68 - 126 mg/dL [facility] HbA1c 5.6 % Invalid Interpretation Code 4.2 - 6 % [facility] Interpretation and review of laboratory results Normal Invalid Interpretation Code [facility] Lipid Panelon 04-27-2017 Cholesterol 202 mg/dL High 100 - 199 mg/dL [facility] Cholesterol to HDL Ratio 2.8 {ratio} Invalid Interpretation Code [facility] HDL Cholesterol 73 mg/dL High 40 - 59 mg/dL [facility] HDL Cholesterol 129 mg/dL Invalid Interpretation Code [facility] Interpretation and review of laboratory results Abnormal Invalid Interpretation Code [facility] LDL Cholesterol 114 mg/dL Invalid Interpretation Code 10 - 130 mg/dL [facility] Triglyceride 73 mg/dL Invalid Interpretation Code 30 - 150 mg/dL [facility] ECG 12 Leadon 03-12-2017 Atrial Rate Invalid Interpretation Code [employer] Work Phone: P Wade Invalid Interpretation Code [facility] Work Phone: P-R Interval Invalid Interpretation Code [facility] Work Phone: Q-T Interval Invalid Interpretation Code [employer] Work Phone: Q-T Interval (corrected) Invalid Interpretation Code [employer] Work Phone: QRS Duration Invalid Interpretation Code [employer] Work Phone: QTC Calculation (Bezet) Invalid Interpretation Code [employer] Work Phone: R Wade Invalid Interpretation Code [employer] Work Phone: T Wade Invalid Interpretation Code [employer] Work Phone: Ventricular Rate Invalid Interpretation Code [employer] Work Phone: Vital Signs Date Time Vital Sign Value Performing [facility] 06-24-2021 10:26-0400 Body height 152.4 cm Geoffrey Doll DO Work Phone: [facility] 06-24-2021 10:26-0400 Body mass index (BMI) [Ratio] 24.61 kg/m2 Geoffrey Doll DO Work Phone: [facility] 06-24-2021 10:26-0400 Body weight 57.15 kg Geoffrey Doll DO Work Phone: [facility] 06-24-2021 10:26-0400 Diastolic blood pressure 95 mm[Hg] Geoffrey Doll DO Work Phone: [facility] 06-24-2021 10:26-0400 Heart rate 105 /min Geoffrey Doll DO Work Phone: [facility] 06-24-2021 10:26-0400 SaO2% (BldA) [Mass fraction] 98 % Geoffrey Doll DO Work Phone: [facility] 06-24-2021 10:26-0400 Systolic blood pressure 195 mm[Hg] Geoffrey Doll DO Work Phone: [facility] 09-25-2019 10:29-0400 BP Diastolic 84 mm[Hg] Maurice Asher [facility] 09-25-2019 10:29-0400 BP Systolic 132 mm[Hg] [facility] 09-25-2019 09:49-0400 BMI (Body Mass Index) 25.78 kg/m2 [facility] 09-25-2019 09:49-0400 Body weight 59.88 kg [facility] 09-25-2019 09:49-0400 Height 152.4 cm [facility] 09-25-2019 09:49-0400 Pulse (Heart Rate) 104 /min [facility] 09-25-2019 09:49-0400 Pulse Oximetry 98 % [facility] 09-25-2019 09:49-0400 Respiratory Rate 16 /min [facility] 02-22-2018 15:21-0500 BMI (Body Mass Index) 25.78 kg/m2 [facility] 02-22-2018 15:21-0500 BP Diastolic 90 mm[Hg] [facility] 02-22-2018 15:21-0500 BP Systolic 147 mm[Hg] [facility] 02-22-2018 15:21-0500 Height 152.4 cm [facility] 02-22-2018 15:21-0500 Pulse (Heart Rate) 101 /min [facility] 02-22-2018 15:21-0500 Pulse Oximetry 98 % [facility] 02-22-2018 15:21-0500 Respiratory Rate 16 /min [facility] 02-22-2018 15:21-0500 Weight 59.88 kg [facility] 04-27-2017 09:23-0500 BP Diastolic 102 mm[Hg] [facility] 04-27-2017 09:23-0500 BP Systolic 158 mm[Hg] [facility] 04-27-2017 08:47-0500 BMI (Body Mass Index) 26.29 kg/m2 [facility] 04-27-2017 08:47-0500 Body Temperature 97.39 [degF] [facility] 04-27-2017 08:47-0500 Height 152.4 cm [facility] 04-27-2017 08:47-0500 Pulse (Heart Rate) 75 /min [facility] 04-27-2017 08:47-0500 Pulse Oximetry 98 % [facility] 04-27-2017 08:47-0500 [facility] 61.05 [facility]12[facility] 13:56-0500 BP Diastolic 88 mm[Hg] [facility] Work [facility]: 03-12-2017 13:56-0500 BP Systolic 144 mm[Hg] [facility]: 03-12-2017 13:56-0500 Pulse (Heart Rate) 96 /min Maurice Asher [facility] Work Phone: 03-12-2017 12:51-0500 BMI (Body Mass Index) 24.8 kg/m2 Maurice Asher [facility] Work Phone: 03-12-2017 12:51-0500 Body Temperature 98.4 [degF] Maurice Asher [facility] Work Phone: 03-12-2017 12:51-0500 Height 152.4 cm Maurice Asher [facility] Work Phone: 03-12-2017 12:51-0500 Pulse Oximetry 99 % Maurice Asher [facility] Work Phone: 03-12-2017 12:51-0500 Weight 57.61 kg Maurice Asher [facility] Work Phone: Encounters Encounter Date Encounter Type Care Provider Facility Start: 01-22-2023 End: 01-22-2023 ambulatory SNEHAL VORA Not Available Start: 09-13-2022 ambulatory GEOFFREY DOLL [facility] Start: 02-06-2022 End: 02-07-2022 ambulatory SANDRINE JULIO Facility:[facility] Start: 01-23-2022 End: 01-24-2022 ambulatory SANDRINE JULIO Facility:[facility] Start: 01-06-2022 ambulatory SANDRINE JULIO Facility: [facility] Start: 01-04-2022 Encounter for genera l adult medical examination without abnormal findings SANDRINE JULIO [facility] Start: 12-27-2021 End: 12-28-2021 ambulatory SANDRINE JULIO Facility:[facility] Start: 12-27-2021 End: 12-28-2021 Encounter for general adult medical examination without abnormal findings SANDRINE JULIO Facility:[facility] Start: 06-24-2021 End: 06-24-2021 ambulatory GEOFFREY SORENSENILY LAVON [facility] Start: 06-24-2021 End: 06-24-2021 Office outpatient visit 25 minutes Geoffrey Doll DO Work Phone: [facility] Comment on above: Laryngopharyngeal re flux (LPR); Primary hypertension; ILDEFONSO (generalized anxiety disorder); Immunization due; Need for shingles vaccine Start: 06-08-2021 Orders Only Geoffrey Amaral ache DO Work Phone: [facility] Comment on above: Primary hypertension (Primary Dx); Screening for deficiency anemia; Screening for diabetes mellitus (DM) Start: 06-01-2021 Refill Geoffrey Amaral ache DO Work Phone: [facility] Start: 05-04-2021 Refill Lorena Katcali [place] Lázaro SIDE HEMMER Work Phone: [facility] Start: 03-24-2021 Refill Geoffrey Amaral ache DO Work Phone: [facility] Start: 02-23-2021 Refill Geoffrey Amaral ache DO Work Phone: [facility] Start: 02-10-2021 Refill Geoffrey Amaral ache DO Work Phone: [facility] Start: 02-07-2021 Refill Geoffrey Amaral ache DO Work Phone: [facility] Start: 02-01-2021 Refill Geoffrey Amaral ache DO Work Phone: [facility] Comment on above: Anxiety state; Primary hypertension Start: 01-11-2021 End: 01-11-2021 ambulatory GEOFFREYJacy GERBER LAVON [facility] Start: 01-10-2021 Patient encounter procedure Go nikky Pichardo DO Work Phone: [facility] Start: 12-27-2020 End: 12-27-2020 ambulatory GEOFFREY DOLL [facility] Start: 12-10-2020 End: 12-14-2020 ambulatory GEOFFREY DOLL [facility] Start: 12-10-2020 End: 12-10-2020 ambulatory GEOFFREY DOLL [facility] Start: 11-19-2020 ambulatory GEOFFREY DOLL [facility] Start: 10-12-2020 Refill Maurice Asher MD Work Phone: [facility] Start: 09-03-2020 ambulatory MAURICE ASHER [facility] Start: 08-03-2020 End: 08-03-2020 Refill Maurice Asehr MD Work Phone: [facility] Start: 06-02-2020 End: 06-02-2020 Refill Maurice Asher Work Phone: [facility] Start: 05-05-2020 End: 05-05-2020 Orders Only Maurice Asher Work Phone: [facility] Start: 04-30-2020 End: 04-30-2020 Orders Only Maurice Asher Work Phone: [facility] Start: 04-29-2020 End: 04-29-2020 Orders Only Maurice Asher Work Phone: [facility] Start: 04-07-2020 End: 04-07-2020 Orders Only Maurice Asher Work Phone: [facility] Start: 03-15-2020 End: 03-15-2020 Office outpatient visit 15 minutes Maurice Asher Work Phone: [facility] Comment on above: Dry cough (Primary D x) Start: 10-14-2019 End: 10-14-2019 Documentation procedure Maurice Asher Work Phone: [facility] Start: 10-10-2019 End: 10-11-2019 Patient encounter procedure MAURICE ASHER [facility] Start: 10-10-2019 End: 10-10-2019 Subsequent hospital visit by physician Maurice Asher Work Phone: [facility] Comment on above: Neck fullness Start: 09-30-2019 End: 09-30-2019 Documentation procedure Maurice Asher Work Phone: [facility] Start: 09-25-2019 End: 09-25-2019 Periodic preventive med est patient 40-64yrs Maurice Asher Work Phone: [facility] Comment on above: Annual physical exam (Primary Dx); Primary Insomnia; Neck fullness Start: 02-22-2018 End: 02-22-2018 Office outpatient visit 25 minutes Maurice Asher Work Phone: [facility] Comment on above: Gastroesophageal ref lux disease without esophagitis (Primary Dx); Benign essential HTN; Generalized anxiety disorder Start: 04-27-2017 End: 04-27-2017 Ambulatory Maurice Asher Work Phone: [facility] Start: 04-27-2017 Office/outpatient vi sit, est, level 4 Maurice Asher Work Phone: [facility] Start: 03-12-2017 Office/outpatient vi sit, est, level 4 Maurice sAher Work Phone: [facility] Procedures Date Procedure Procedure Detail Performing Clinician Start: 01-10-2021 Colonoscopy Geoffrey evans DO Work Phone: Start: 12-10-2020 Adult depression scr eening assessment Filemon Pichardo DO Work Phone: Start: 09-03-2020 Mammography Maurice jerez MD Work Phone: Start: 10-10-2019 Us soft tissue head & neck real time imge docm Maurice Asher Work Phone: Start: 09-25-2019 Adult depression scr eening assessment Maurice Asher Start: 05-10-2019 Mammography Maurice jerez Start: 04-25-2017 Mammography Maurice jerez Start: 11-21-2013 Microscopic observat ion [Identifier] in Cervix by Cyto stain Maurice Asher Plan of Treatment Date Care Activity Detail Author Start: 01-10-2031 Screening for malign ant neoplasm of colon [facility] Start: 05-28-2024 Tetanus vaccination [facility] Start: 12-26-2021 End: 12-26-2021 Patient encounter procedure 12/26/2021 Office Visit Primary Care Geoffrey Doll DO [address] [place] [address] [facility] Start: 12-10-2021 Depression screening using PHQ-9 (Patient Health Questionnaire 9) score Depression Screening (PHQ-2/9) [facility] Start: 10-27-2021 Influenza vaccination Sequenti al Influenza Vaccine (Season Ended) [facility] Start: 09-03-2021 Screening for malign ant neoplasm of breast Mammogram [facility] Start: 06-24-2021 End: 06-24-2021 Patient encounter procedure 06/24/2021 Office Visit Primary Care Geoffrey Doll DO [address] [place] [address] [facility] Start: 02-07-2021 End: 02-07-2021 Telemedicine consultation with patient 02/07/2021 Telemedicine Primary Care Geoffrey Doll DO [address] [place] [address] [facility] Start: 01-10-2021 End: 01-10-2021 Patient encounter procedure 01/10/2021 Office Visit Gastroenterology Filemon Pichardo DO [address] [address] [facility] Start: 12-10-2020 End: 12-10-2020 Patient encounter procedure 12/10/2020 Office Visit Primary Care Geoffrey Doll DO [address] [place] [address] [facility] Start: 10-27-2020 Influenza vaccination [facility] Start: 09-24-2020 Adolescent depressio n screening assessment Depression Screening (PHQ9) [facility] Start: 09-24-2020 Depression screening using PHQ-9 (Patient Health Questionnaire 9) score Depression Screening (PHQ9) [facility] Start: 09-24-2020 History and physical examination, annual for health maintenance Wellness Visit [facility] Start: 06-30-2020 COVID-19 Vaccine (2 - Booster for Laura series) COVID-19 Vaccine (2 - Booster for Laura series) [facility] Start: 05-21-2020 End: 05-21-2020 Telemedicine 05/21/2020 Telemedicine Primary Care [place] [address] [phone] [facility] Start: 05-09-2020 [facility] Start: 04-29-2020 End: 04-29-2020 Telemedicine 04/29/2020 Telemedicine Urgent Care [facility] Start: 10-28-2019 Influenza vaccinatio n given Sequential Influenza Vaccine (#1) [facility] Start: 04-25-2018 Protein mass conc MAMMOGRAM [facility] Start: 04-25-2018 Screening mammography [facility] Start: 10-27-2017 Influenza vaccination [facility] Start: 2017 Zoster vacc, sc ZOSTER VACCINE [facility] Start: 11-21-2016 Screening for malign ant neoplasm of cervix PAP SMEAR [facility] Start: 10-27-2016 Influenza vaccination SEQUENTI AL INFLUENZA VACCINE (#1) [facility] Work Phone: Start: 08-22-2016 History and physical examination, annual for health maintenance Wellness Visit [facility] Start: 10-18-2015 Pneumococcal Vaccine : Ped or At-Risk (1 of 2 - PPSV23) Pneumococcal Vaccine: Ped or At-Risk (1 of 2 - PPSV23) [facility] Start: 06-11-2007 Administration of he rpes zoster vaccine Zoster Vaccines (1 of 2) [facility] Start: 06-11-2007 Screening for malign ant neoplasm of colon [facility] Start: 06-11-2007 ZOSTER VACCINES (1 of 2) ZOSTER VACC SAVANNAH (1 of 2) [facility] Start: 06-11-1975 Hepatitis C antibody , confirmatory test Hepatitis C Screening [facility] Start: 06-11-1975 Hepatitis C screening Hepatitis C Sc reening [facility] Start: 1973 COVID-19 Vaccine (1 of 2) COVID-19 Vaccine (1 of 2) [facility] Start: 1973 COVID-19 Vaccine (1) COVID-19 Vaccin e (1) [facility] Start: 1972 HIV screening HIV Screening [facility] Start: 1969 COVID-19 Vaccine (1) COVID-19 Vaccin e (1) [facility] Start: 1957 Screening for malign ant neoplasm of colon Colorectal Cancer Screening: Colonoscopy [facility] Start: 1955 HEPATITIS C SCREENING HEPATITIS C SC [facility] Work Phone: Start: 1955 Screening colonoscopy COLONOSCOPY [facility] Work Phone: End: 09-24-2020 Basic metabolic 2000 panel Basic Metabolic Panel Lab Routine Annual physical exam 1 Occurrences starting 09/25/2019 until 09/24/2020 [facility] Comment on above: 1 Occurrences starti ng 09/25/2019 until 09/24/2020 Basic metabolic 2000 panel Basic Metabolic Panel Lab Routine Annual physical exam 09/25/2019 10:28 AM EDT [facility] End: 09-29-2020 Basic metabolic 2000 panel Basic Metabolic Panel Lab Routine Hyponatremia 1 Occurrences starting 09/30/2019 until 09/29/2020 [facility] Comment on above: 1 Occurrences starti ng 09/30/2019 until 09/29/2020 End: 09-29-2020 Calcium.ionized [Mass/Vol] Calcium, Ionized Lab Routine Serum calcium elevated 1 Occurrences starting 09/30/2019 until 09/29/2020 [facility] Comment on above: 1 Occurrences starti ng 09/30/2019 until 09/29/2020 End: 09-24-2020 Complete blood count (hemogram) panel - Blood by Automated count CBC Lab Routine Annual physical exam 1 Occurrences starting 09/25/2019 until 09/24/2020 [facility] Comment on above: 1 Occurrences starti ng 09/25/2019 until 09/24/2020 Complete blood count (hemogram) panel - Blood by Automated count CBC Lab Routine Annual physical exam 09/25/2019 10:28 AM EDT [facility] End: 06-08-2022 Complete blood count with white cell differential, manual CBC and Differential Lab Routine Screening for deficiency anemia 1 Occurrences starting 06/08/2021 until 06/08/2022 [facility] Comment on above: 1 Occurrences starti ng 06/08/2021 until 06/08/2022 End: 06-08-2022 Comprehensive metabolic 2000 panel - Serum or Plasma Comprehensive Metabolic Panel Lab Routine Primary hypertension 1 Occurrences starting 06/08/2021 until 06/08/2022 [facility] Comment on above: 1 Occurrences starti ng 06/08/2021 until 06/08/2022 End: 06-08-2022 Lipid 1996 panel - Serum or Plasma Lipid Panel Lab Routine Screening for diabetes mellitus (DM) 1 Occurrences starting 06/08/2021 until 06/08/2022 [facility] Work Phone: Comment on above: 1 Occurrences starti ng 06/08/2021 until 06/08/2022 End: 09-24-2020 TSH Qn TSH with Reflex Free T4 Lab Routine Annual physical exam 1 Occurrences starting 09/25/2019 until 09/24/2020 [facility] Comment on above: 1 Occurrences starti ng 09/25/2019 until 09/24/2020 TSH Qn TSH with Reflex Free T4 Lab Routine Annual physical exam 09/25/2019 10:28 AM EDT [facility] End: 09-24-2020 US Thyroid Only US Thyroid Only Imaging Routine Neck fullness 1 Occurrences starting 09/25/2019 until 09/24/2020 [facility] Comment on above: 1 Occurrences starti ng 09/25/2019 until 09/24/2020 Immunizations Immunization Date Immunization Notes Care Provider Fa colt 08-23-2015 pneumococcal conjuga te vaccine, 13 valent; Translations: [PNEUMOCOCCAL CONJUGATE 13-VALENT (PREVNAR 13)] Maurice Asher [facility]th 05-28-2014 tetanus toxoid, redu miah diphtheria toxoid, and acellular pertussis vaccine, adsorbed Maurice Asher [facility] Payers Date Payer Category Payer Unknown xxxxxxxxxxxx 2. [id number] 2014 Unknown [id number] 2. [id number] 2014 Unknown [id number] 1. [id number] 2014 Unknown [id number] 1959 Self-pay 1959 Unknown [id number] 1957 Unknown [id number] 2.16.8 [id number] 1957 Unknown [id number] 2.16. [id number] 1957 Unknown [id number] 2.16. [id number] 1957 Unknown [id number] 2.16. [id number] 1957 Unknown [id number] 2.16. [id number] 1957 Unknown [id number] 2.16. [id number] 1957 Unknown [id number] 2.16. [id number] 1957 Unknown [id number] 2.16. [id number] 1957 Unknown [id number] 2.16.84 [id number] 1957 Unknown [id number] 2.16.84 [id number] 1957 Unknown [id number] 2.16.84 [id number] 1957 Unknown [id number] 2.16.84 [id number] 1957 Unknown [id number] 2.16. [id number] 1957 Unknown [id number] Social History Date Type Detail Facility Start: 04-27-2017 End: 03-15-2020 Tobacco smoking status NHIS Current every day smoker [facility] Start: 1955 Sex Assigned At Not on file [facility] Work Phone: Start: 09-25-2019 End: 12-10-2020 Alcohol intake Current drinker of alcohol (finding) [facility] Start: 02-07-2016 Alcohol Comment On occasion [facility] Start: 06-13-2021 End: 06-23-2021 Exposure to SARS-CoV-2 (event) Not sure [facility] Start: 09-25-2019 End: 12-10-2020 Tobacco use and exposure Never used [facility] Start: 03-15-2020 End: 12-10-2020 Alcohol intake [facility] Start: 12-10-2020 Tobacco smoking stat us MNIS Ex-smoker [facility] History of tobacco use Cigarette Smoker [facility] Start: 12-10-2020 History SDOH Social Connections Membership 2 [facility] Start: 12-10-2020 History SDOH Social Connections Meetings 1 [facility] Start: 12-10-2020 History SDOH Financial 5 [facility] Start: 12-10-2020 Tobacco Comment has not smoked for 5 days as of 12/10/20 [facility] Clinical Notes 10-12-2020 to 06-24-2021 Geoffrey Doll DO - 06/24/2021 10:15 AM EDTTelephone Encounter - Dawna Sharp MA - 06/01/2021 9:44 AM EDTTelephone Encounter - Dawna Sharp MA - 06/01/2021 9:44 AM EDT Note Date & Type Note Facility 06-24-2021 History of Presen t illness Narrative Subjective Subjective HPI: Shara Jacobsmitz is a 66 y.o. female who presents to the Clinic on 06/24/21 for Chief Complaint Patient presents with Annual Exam Stated shes not doing any blood work today due to insurance. LPR Not on PPI. Using Pepcid with good control. ILDEFONSO and HTN Added propanolol to hydrochlorothiazide. Not taking propanolol any longer. Using hydroxyzine PRN but most of the time 3 times per week. Health Maintenance Topic Date Due HIV Screening Never done Hepatitis C Screening Never done Zoster Vaccines (1 of 2) Never done Pap Smear 11/21/2016 Wellness Visit 09/24/2020 Mammogram 09/03/2021 Sequential Influenza Vaccine (Season Ended) 2021 Depression Screening (PHQ-2/9) 12/10/2021 Tetanus: Every 10yrs 05/28/2024 Colorectal Cancer Screening 01/10/2031 COVID-19 Vaccine Completed Pneumococcal Vaccine: Ped or At-Risk Aged Out Smoker Health Maintenance (if applicable) Annual low dose screening CT: (if age 50-80 has 20 pack-year hx, and quit <15 years ago) Health Maintenance has been reviewed and updated. Review of Systems All other systems reviewed and negative, pertinent positives and negatives mentioned above. Past Medical History: Diagnosis Date Allergic rhinitis Anxiety Dyshidrotic eczema hands Fibrocystic breast Nicotine dependence Tongue disorder Past Surgical History: Procedure Laterality Date TUBAL LIGATION Family History Problem Relation Age of Onset Hypertension Mother Diabetes Mother Coronary artery disease Mother 70 Allergies Mother Coronary artery disease Father 70 Irritable bowel syndrome Father Hypertension Father MELISSA disease Father Breast cancer Maternal Aunt Social History Socioeconomic History Marital status: Tobacco Use Smoking status: Former Smoker Packs/day: 0.30 Years: 73.00 Pack years: 21.90 Types: Cigarettes Smokeless tobacco: Never Used Tobacco comment: has not smoked for 5 days as of 12/10/20 Vaping Use Vaping Use: Never used Substance and Sexual Activity Alcohol use: Yes Alcohol/week: 0.0 standard drinks Comment: On occasion Drug use: No Sexual activity: Yes Partners: Male Social Determinants of Health Financial Resource Strain: Low Risk Difficulty of Paying Living Expenses: Not hard at all Food Insecurity: No Food Insecurity Worried About Running Out of Food in the Last Year: Never true Ran Out of Food in the Last Year: Never true Transportation Needs: No Transportation Needs Lack of Transportation (Medical): No Lack of Transportation (Non-Medical): No Social Connections: Unknown Active Member of Clubs or Organizations: No Attends Club or Organization Meetings: Never Personal and surgical history personally reviewed. Family history and social history personally reviewed. Family history is not pertinent other than noted in HPI. Current Outpatient Medications on File Prior to Visit Medication Sig Dispense Refill hydroCHLOROthiazide (HYDRODIURIL) 25 MG tablet Take 1 (one) tablet (25 mg total) by mouth daily . 90 tablet 3 hydrOXYzine (VISTARIL) 25 MG capsule Take 1 (one) capsule (25 mg total) by mouth 3 (three) times a day as needed for itching or anxiety . 90 capsule 1 montelukast (SINGULAIR) 10 mg tablet Take 1 (one) tablet (10 mg total) by mouth nightly . 90 tablet 3 traZODone (DESYREL) 50 MG tablet Take 1 (one) tablet (50 mg total) by mouth nightly . 90 tablet 0 melatonin 5 mg Tab Take by mouth . [DISCONTINUED] cetirizine (ZYRTEC) 10 MG tablet Take 10 mg by mouth daily . [DISCONTINUED] propranoloL (INDERAL) 20 MG tablet Take 1 (one) tablet (20 mg total) by mouth 2 (two) times a day . 60 tablet 1 No current facility-administered medications on file prior to visit. Objective Objective Blood pressure (!) 195/95, pulse (!) 105, height 5', weight 57.2 kg (126 lb), SpO2 98 %. Wt Readings from Last 3 Encounters: 06/24/21 57.2 kg (126 lb) 12/10/20 57.2 kg (126 lb) 09/25/19 59.9 kg (132 lb) Body mass index is 24.61 kg/m . Physical Exam Constitutional: General: She is not in acute distress. Appearance: She is well-developed. HENT: Head: Normocephalic and atraumatic. Eyes: Conjunctiva/sclera: Conjunctivae normal. Pupils: Pupils are equal, round, and reactive to light. Cardiovascular: Rate and Rhythm: Normal rate. Heart sounds: No murmur heard. No friction rub. No gallop. Pulmonary: Effort: No respiratory distress. Breath sounds: Normal breath sounds. No wheezing or rales. Abdominal: General: Bowel sounds are normal. There is no distension. Musculoskeletal: Cervical back: Neck supple. Skin: General: Skin is warm and dry. Findings: No erythema. Neurological: Mental Status: She is alert and oriented to person, place, and time. Psychiatric: Mood and Affect: Mood is anxious. Behavior: Behavior normal. Thought Content: Thought content normal. Labs reviewed including: Lab Results Component Value Date WBC 8.16 12/10/2020 HGB 13.0 12/10/2020 HCT 40.3 12/10/2020 MCV 87.6 12/10/2020 PLT 326 12/10/2020 Lab Results Component Value Date NA 138 12/10/2020 K 5.6 (H) 12/10/2020 CL 100 12/10/2020 BUN 12 12/10/2020 CREATININE 0.88 12/10/2020 GLUCOSE 100 (H) 12/10/2020 Lab Results Component Value Date CHOL 192 12/10/2020 HDL 75 12/10/2020 TRIG 61 12/10/2020 Lab Results Component Value Date HGBA1C 5.6 04/27/2017 Lab Results Component Value Date TSH 0.78 09/25/2019 I have personally reviewed labs. Assessment & Plan Assessment and Plan Diagnoses and all orders for this visit: Laryngopharyngeal reflux (LPR) Primary hypertension ILDEFONSO (generalized anxiety disorder) Immunization due Need for shingles vaccine Other orders - metoprolol succinate (TOPROL-XL) 50 MG 24 hr tablet; Take 1 (one) tablet (50 mg total) by mouth daily . 1. Controlled on Pepcid, continue. 2. We will go ahead and add metoprolol to assist with blood pressure as well as anxiety. She is to monitor her blood pressures at home and let me know. 3. Again, we will add on metoprolol to see if this assists. She is using hydroxyzine as needed however this is seldom as she often forgets. For any new medications prescribed today, patient was educated about indications for the medication, how to take the medication and potential side effects of the medications. FOLLOW-UP: Geoffrey Doll DO documented in this encounter [facility] 06-01-2021 Telephone encounter Note Form atting of this note might be different from the original. YASMANI 12/27/20 NOV 06/24/21 [facility] 06-01-2021 Miscellaneous Notes Formattin g of this note might be different from the original. YASMANI 12/27/20 NOV 06/24/21 ----- Message from Delmy Raines sent at 06/01/2021 9:32 AM EDT ----- Regarding: anxiety medication request Contact: self [phone] Pt states she would like to have the anxiety medication prescribed again. Pt does not remember the name of the medication and it is not listed on her med list. The medication was for anxiety and itching and to take three times a day as needed. [id number] [place] [address] AT [facility] [employer] [facility] . Callback [phone] Thank you Delmy documented in this encounter [facility] 06-01-2021 Telephone encounter Note Form atting of this note might be different from the original. ----- Message from Delmy Raines sent at 06/01/2021 9:32 AM EDT ----- Regarding: anxiety medication request Contact: self [phone] Pt states she would like to have the anxiety medication prescribed again. Pt does not remember the name of the medication and it is not listed on her med list. The medication was for anxiety and itching and to take three times a day as needed. [id number] [place] [address] AT [facility] [employer] [facility] . Callback [phone] Thank you Delmy [facility] 03-24-2021 Miscellaneous Notes I wrote this for a year supply about a month ago. Addended by: DAWNA SHARP on: 03/24/2021 01:08 PM Modules accepted: Orders Pt pharmacy states no refills available documented in this encounter [facility] 03-24-2021 Miscellaneous Notes Addended by: DAWNA SHARP on: 03/24/2021 01:08 PM Modules accepted: Orders Pt pharmacy states no refills available documented in this encounter [facility] 02-23-2021 Miscellaneous Notes YASMANI 12/27/20 NOV none Spoke with the pharmacy and patient has refills on file. Sending [employer] message to patient. documented in this encounter [facility] 02-10-2021 Miscellaneous Notes YASMANI 12/27/20 telemedicine NOV none ----- Message from Tanya Garcia sent at 02/10/2021 1:39 PM EST ----- Regarding: rx. refill Contact: Self MEDICATION REFILL REQUEST: PCP: Geoffrey Doll DO Patient called 02/10/21 and is requesting a medication refill for hydrOXYzine (VISTARIL) 25 MG capsule . This was confirmed from the current medication list found in the patients chart. Supply Requested: # of days: 90 days Method of receiving: Send to pharmacy Last set of flowsheet rows for OARRS report: OARRS/NARxCHECK Report Received and Assessed: 04/28/2016 Date controlled substance agreement signed: 02/02/2016 Date of last drug screen: No data found Functional Assessment: No data found Will this refill be sent to the preferred pharmacy listed below? Yes Preferred pharmacies: [id number] - [place], [place] - [address] [facility] [address] [place] [id number] Pt Call Back Number Patient call back message sent to the primary care clinical pool. Tanya Garcia documented in this encounter [facility] 02-07-2021 Miscellaneous Notes YASMANI 12/27/20 NOV none ----- Message from Sarah Burton sent at 02/07/2021 3:32 PM EST ----- Regarding: Rx Refill Contact: Shara (Self) MEDICATION REFILL REQUEST: PCP: Geoffrey Doll DO Patient called 02/07/21 and is requesting a medication refill for traZODone (DESYREL) 50 MG tablet. This was confirmed from the current medication list found in the patients chart. Supply Requested: # of days: 90 days Method of receiving: Send to pharmacy Last set of flowsheet rows for OARRS report: OARRS/NARxCHECK Report Received and Assessed: 04/28/2016 Date controlled substance agreement signed: 02/02/2016 Date of last drug screen: No data found Functional Assessment: No data found Will this refill be sent to the preferred pharmacy listed below? Yes Preferred pharmacies: [id number] - [place], [place] - [address] [facility] [address] [place] [id number] Pt Call Back Number Patient call back message sent to the primary care clinical pool. Sarah Burton documented in this encounter [facility] 02-01-2021 Miscellaneous Notes YASMANI 12/27/20 Telemedicine 02/07/21 documented in this encounter [facility] 10-12-2020 Miscellaneous Notes YASMANI 03/15/20 (Telemedicine) 12/10/20 documented in this encounter [facility] Evaluation note Diagnosis Anxiety state Anxiety state, unspecified Primary hypertension Unspecified essential [facility] Primary hypertension- Primary Unspecified essential hypertension Screening for deficiency anemia Screening for other and unspecified deficiency anemia Screening for diabetes mellitus (DM) Screening for diabetes mellitus [facility] Diagnosis Laryngopharyngeal reflux (LPR) Primary hypertension Unspecified essential hypertension ILDEFONSO (generalized anxiety disorder) Generalized anxiety disorder Immunization due Need for shingles vaccine Need for prophylactic vaccination and inoculation against varicella documented in this encounter [facility] Assessments Diagnosis Annual physical exam Routine general medical examination at a health care facility Diagnosis Elevated blood pressure read ing without diagnosis of hypertension - Primary Anxiety state Anxiety state, unspecified Diagnosis Hypertension, unspecified ty pe - Primary Anxiety disorder, unspecifie d type Diagnosis Gastroesophageal reflux disease without esophagitis- Primary Esophageal reflux Benign essential HTN Generalized anxiety disorder Diagnosis Annual physical exam Routine general medical examination at a health care facility Primary Insomnia Persistent disorder of initiating or maintaining sleep Neck fullness Diagnosis Hyponatremia Hyposmolality and/or hyponatremia Serum calcium elevated Hypercalcemia Diagnosis Neck fullness Diagnosis Dry cough- Primary Cough History of Present Illness * Maurice Asher MD - 02/22/2018 3:26 PM EST Subjective Patient ID: Shara Dockery is a 62 y.o. female. HPI Shara is a 62 year old female who is presenting today for follow up on anxiety and HTN. She also feels she has some feeling of things getting stuck in the throat She has feeling of things getting stuck in throat and has been off and on since 4 years ago. She has tried Nexium for 14 days for GERD as possible causes but did have some improvement. She had a scope done about 4 years ago and was normal. She does have a long history of smoking as well. She usually does not have issues with swallowing food or drink but is worse with just swallowing dry. She feels it is worse by the end of the day. It is not present every day. She does have burping and belchingpresent. She feels anxiety is doing well and has improved. She has been cutting lexapro down to 5 mg and still doing well. She would like to go down to 5 mg dose continuous. She has less anxiety and feels a lower dose or titrating off may be beneficial to her. She has no current depression symptoms and denies any suicidal or homicidal ideation. She feels BP is well controlled with ambulatory BP monitoring. Most values have been below 140/90 and well controlled. She is taking HCTZ 25 mg and Toprolol XL 50 mg daily. She is not missing any doses and has no unwanted side effects. She tries to stay active, is a nonsmoker, avoiding ETOH and doing regular exercise. She is feeling slighlty stressed and anxious during today's visit. The following portions of the patient's history were reviewed and updated as appropriate: allergies, current medications, past family history, past medical history, past social history, past surgicalhistory and problem list. Review of Systems Constitutional: Negative for activity change, appetite change, chills, fever and unexpected weight change. HENT: Positive for trouble swallowing. Negative for congestion and sore throat. Eyes: Negative for pain and visual disturbance. Respiratory: Negative for cough, chest tightness, shortness of breath and wheezing. Cardiovascular: Negative for chest pain, palpitations and leg swelling. Gastrointestinal: Negative for abdominal distention, abdominal pain, constipation, diarrhea, nauseaand vomiting. Endocrine: Negative for polydipsia, polyphagia and polyuria. Genitourinary: Negative for dysuria and urgency. Musculoskeletal: Negative for arthralgias and myalgias. Skin: Negative for color change and rash. Neurological: Negative for dizziness, weakness, light-headedness, numbness and headaches. Psychiatric/Behavioral: Negative for agitation, confusion, decreased concentration, self-injury andsuicidal ideas. The patient is nervous/anxious. Objective Physical Exam Constitutional: She is oriented to person, place, and time. She appears well- developed and well-nourished. No distress. HENT: Head: Normocephalic and atraumatic. Eyes: Pupils are equal, round, and reactive to light. Conjunctivae and EOM are normal. Neck: Normal range of motion. Neck supple. No tracheal deviation present. Cardiovascular: Normal rate, regular rhythm, normal heart sounds and intact distal pulses. No murmur heard. Pulmonary/Chest: Effort normal and breath sounds normal. No respiratory distress. She has no wheezes. Abdominal: Soft. Bowel sounds are normal. She exhibits no distension. There is no tenderness. Thereis no rebound and no guarding. Musculoskeletal: Normal range of motion. She exhibits no edema. Neurological: She is alert and oriented to person, place, and time. Skin: Skin is warm and dry. No rash noted. She is not diaphoretic. No erythema. Psychiatric: She has a normal mood and affect. Her behavior is normal. Judgment and thought contentnormal. Assessment/Plan: Diagnoses and all orders for this visit: Gastroesophageal reflux disease without esophagitis --feeling of throat getting stuck and trouble with swallowing -no trouble with swallowing food or drink at this time -may be anxiety component as she is aware of swallowing and feels like things are getting caught ornot going down as easy -has had burping and belching consistent with GERD which may cause esophagitis -has had improvement with short duration of PPI -start on Omeprazole 40 mg daily for 1-2 months -has EGD set up in 1-2 weeks. Does have history of smoking Benign essential HTN -mildly elevated today but well controlled at home with ambulatory BP monitoring. -currently on HCTZ 25 mg daily and Metoprolol XL 50 mg daily -no changes to medication at home BP values controlled -continue to work on diet, exercise, weight loss, quitting smoking, avoiding ETOH and salt in diet Generalized anxiety disorder -improved and well controlled -no depression symptoms -no active suicidal or homicidal ideation -wean down and off Lexapro if toerlating -decrease lexapro dosing to 5 mg daily -after next month consider titration off if anxiety still well controlled Other orders - hydroCHLOROthiazide (HYDRODIURIL) 25 MG tablet; Take 1 (one) tablet (25 mg total) by mouth daily . - escitalopram oxalate (LEXAPRO) 5 MG tablet; Take 1 (one) tablet (5 mg total) by mouth daily . - diclofenac sodium 1 % Gel; Apply 2 (two) g topically 4 (four) times a day . - omeprazole (PRILOSEC) 40 MG capsule; Take 1 (one) capsule (40 mg total) by mouth daily . * Kenya Watson MA - 02/22/2018 3:23 PM EST Rooming Documentation How often do you need to have someone help you when you read instructions, pamphlets or other written material from your doctor or pharmacy? Health Literacy Patient Response: Never Are you experiencing any side effects or adverse reactions to your medications? Patient response: No Do you have any problems taking your medications? Patient Response: No Patient states they do understand their medications Are you taking any [id number] medications or supplements? Patient Response: None Since last being seen in this office, have you seen another healthcare provider? Patient Response: No in this encounter* Maurice Asher MD - 09/25/2019 10:04 AM EDT Subjective Patient ID: Shara Dockery is a 64 y.o. female. SHAHNAZ Olmedo is a 64 year old female who is presenting today for annual physical. She tries to improve diet and exercise but has struggled a bit with COVID19. She is a current smoker but trying to quit and using nicotene gum but still struggles with getting off cigarettes. ETOH in moderation, no illicit drug use. Not sexually active, no concern for STI. She had recent lab work done with cholesterol and HgA1c values doing well and controlled. TDAP done in 2014. She is going to have shingles at local pharmacy. Mammogram done in April 2019. She is not doing pap smear but willing to have this done. She has not had colon cancer screening but struggles with insurance. She is willing to have a pap smear in the future, last time she saw [employer] was about 3-4 years ago but willing to have done with our office on next visit The following portions of the patient's history were reviewed and updated as appropriate: allergies, current medications, past family history, past medical history, past social history, past surgicalhistory and problem list. Review of Systems Constitutional: Negative for activity change, appetite change, chills, fever and unexpected weight change. HENT: Positive for sore throat and trouble swallowing. Negative for congestion and ear pain. Eyes: Negative for pain and visual disturbance. Respiratory: Negative for cough, chest tightness, shortness of breath and wheezing. Cardiovascular: Negative for chest pain, palpitations and leg swelling. Gastrointestinal: Negative for abdominal distention, abdominal pain, constipation, diarrhea, nauseaand vomiting. Genitourinary: Negative for dysuria and frequency. Musculoskeletal: Negative for arthralgias and myalgias. Skin: Negative for color change and rash. Neurological: Negative for dizziness, weakness, light-headedness, numbness and headaches. Psychiatric/Behavioral: Negative for agitation, confusion, decreased concentration, self-injury andsuicidal ideas. The patient is nervous/anxious. BP 132/84 Pulse (!) 104 Resp 16 Ht 5' Wt 59.9 kg (132 lb) LMP (LMP Unknown) SpO2 98% BMI 25.78 kg/m Objective Physical Exam Constitutional: General: She is not in acute distress. Appearance: She is well-developed. She is not diaphoretic. HENT: Head: Normocephalic and atraumatic. Eyes: Conjunctiva/sclera: Conjunctivae normal. Pupils: Pupils are equal, round, and reactive to light. Neck: Musculoskeletal: Normal range of motion and neck supple. Trachea: No tracheal deviation. Cardiovascular: Rate and Rhythm: Normal rate and regular rhythm. Heart sounds: Normal heart sounds. No murmur. Pulmonary: Effort: Pulmonary effort is normal. No respiratory distress. Breath sounds: Normal breath sounds. No wheezing. Abdominal: General: Bowel sounds are normal. There is no distension. Palpations: Abdomen is soft. Tenderness: There is no abdominal tenderness. There is no guarding or rebound. Musculoskeletal: Normal range of motion. Skin: General: Skin is warm and dry. Findings: No erythema or rash. Neurological: Mental Status: She is alert and oriented to person, place, and time. Psychiatric: Behavior: Behavior normal. Thought Content: Thought content normal. Judgment: Judgment normal. Assessment/Plan: Diagnoses and all orders for this visit: Annual physical exam -vitals stable with BP borderline on manual recheck at 132/84 -BMI is at 25.8 and doing fairly well for her weight -lab work with HgA1c in prediabetes at 6.0 and Lipid panel with TG at 105, HDL at 45 and LDL at goal -she is a smoker but using nicotine gum to quit, ETOh infrequent in moderation, no illicit drug use -not sexually active, no concern for STI -not had pap smear in several years. Will consider this on next visit -mammogram done in April 2019 and normal -not had colonoscopy or colon cancer screening and struggles with cost due to her insurance not covering. Will consider this at 67 if she is on medicare -TDAP up to date, considering shingles at local pharmacy or health department with less cost -discussed safe driving practices - Basic Metabolic Panel; Future - CBC; Future - TSH with Reflex Free T4; Future Primary Insomnia -has issues with sleep and anxiety -will try on trazonde 50 mg nightly -follow up depending on results in 1 month Neck fullness -fullness of neck and trouble swallowing -has been seen by ENT in the past -will have another follow up appointment -will order U/S thyroid and thyroid testing as well -recommend smoking cessation as this may play a role -also recommend hydration and use of biotene as mouth appears dry - US Thyroid Only; Future Other orders - omeprazole (PRILOSEC) 40 MG capsule; Take 1 (one) capsule (40 mg total) by mouth daily . - hydroCHLOROthiazide (HYDRODIURIL) 25 MG tablet; Take 1 (one) tablet (25 mg total) by mouth daily . documented in this encounter* Maurice Asher MD - 09/30/2019 1:54 PM EDT Discussed lab results. CBC in normal range with no elevated WBC count, normal H/H with no anemia, normal platelet count. TSH normal for thyroid function but with swelling of lower neck, would still continue with U/S thyroid. BMP shows slightly elevated Ca and low Na and Cl but normal renal function. Would recommend repeat BMP and she will come in for this documented in this encounter* Maurice Asher MD - 10/14/2019 8:09 AM EDT Attempted to call patient but no answer. Voicemail left. U/S thyroid shows several small thyroid nodules. Given small size, they do not recommend biopsy with very low risk of malignancy. Based on thesize, recommendation is to repeat thyroid U/S in 1 year interval to continue to monitor. All prominent lymph nodes but are benign appearing. Recommended repeat U/S in 1 year. If she has further concern, can place referral to endocrinology documented in this encounter* Maurice Asher MD - 03/15/2020 2:21 PM EST Video Visit [facility] [address] [facility] [address] [facility] [id number] Via Real-time Synchronous Audiovisual [facility] 03/15/2020 Maurice Asher MD Provider Location: [facility] Patient Location Factory Worker: None Patient Location: Patient's Home Patient: Shara Dockery Date of : 1955 (64 y.o. female) PCP: Maurice Asher MD Video Visit Consent Statement: I discussed risks, benefits and alternatives of a real-time synchronous audiovisual consultation with the patient (and any accompanying persons) including the risks that the patient s personal health details and medical records will be discussed over real-time, synchronous, interactive video/audio/telecommunication technology, the visit will not be recorded without the express consent of both the provider and the patient, and that there are some limitations compared to [id number] evaluations. We elected to proceed. Subjective Patient ID: Shara Dockery is a 64 y.o. female. HPI Shara is a 64 Year old female who is presenting today through a video visit for chronic cough for about 4 weeks. She has cough intermittent with coughing spells but does not notice it at night with sleep. Seems to flare at different times with cough spells. She has no chest pain, SOB or wheezing. She feels like she has a tickle in the back of the throat when she coughs and more with talking. She infrequent has a small amount of mucous when she wakes up. She has no production although some timeshas some clear phlem. She has tried some jose selzer for cough and congestion for a couple of days and mucinex and felt it helped slightly. The following portions of the patient's history were reviewed and updated as appropriate: allergies, current medications, past family history, past medical history, past social history, past surgicalhistory and problem list. Review of Systems Constitutional: Negative for chills and fever. HENT: Positive for postnasal drip. Negative for congestion and sore throat. Eyes: Negative for pain and visual disturbance. Respiratory: Positive for cough. Negative for shortness of breath and wheezing. Cardiovascular: Negative for chest pain and palpitations. Gastrointestinal: Negative for nausea and vomiting. Musculoskeletal: Negative for arthralgias and myalgias. Neurological: Negative for dizziness and headaches. Objective Physical Exam Constitutional: General: She is not in acute distress. Appearance: Normal appearance. She is not ill-appearing. HENT: Head: Normocephalic and atraumatic. Pulmonary: Effort: Pulmonary effort is normal. No respiratory distress. Neurological: General: No focal deficit present. Mental Status: She is alert. Mental status is at baseline. Psychiatric: Mood and Affect: Mood normal. Behavior: Behavior normal. Thought Content: Thought content normal. Judgment: Judgment normal. Assessment/Plan: Diagnoses and all orders for this visit: Dry cough -dry intermittent cough for the last 4 weeks -likely differential is allergies with sinusitis and post nasal drip vs GERD but also possibility of being viral -no medication with side effect of dry cough -has GERD in the past but feels it is likely more allergies -does have history of smoker -cough does not wake her up from sleep and no wheezing making asthma less likely -cough is usually dry and happens more with talking. Could also be vocal cord spasms or dysfunction -will start with allergy medication with Singulair 10 mg nightly for 2-4 weeks -if not improving, consider GERD medication regimen with prilosec 40 mg -if still no answer, consider ENT for possible nasopharygoscopy if it is indicated -EGD could also be an option for GERD but will see how she responds to above medication regimen before more aggressive work up -no fever, chills, SOB, chest pain, body aches, nausea/vomiting, loss of smell or taste Other orders - montelukast (SINGULAIR) 10 mg tablet; Take 1 (one) tablet (10 mg total) by mouth nightly . documented in this encounter Reason for Referral Status Reason Specialty Diagnoses / Procedures Referred By Contact Referred To Contact New Request Radiology Diagnoses Neck fullness Procedures US Thyroid Only Maurice Asher MD [address] [place] [address] Status Reason Specialty Diagnoses / Procedures Referre d By Contact Referred To Contact [facility] Maurice Asher MD [address] [place] [address] Advance Directives No Advanced Directives Records FoundDocuments on File Type Date Recorded Patient Fitness Assistant Expl anation Advance Directives and Livin g Will 09/25/2019 9:45 AM Documents on File Type Date Recorded Patient Fitness Assistant Expl anation Advance Directives and Livin g Will 09/25/2019 9:45 AM Documents on File Type Date Recorded Patient Fitness Assistant Expl anation Advance Directives and Livin g Will 10/10/2019 12:00 AM Documents on File Type Date Recorded Patient Fitness Assistant Expl anation Advance Directives and Livin g Will 10/10/2019 12:00 AM Summary Purpose Family History No Family History Records FoundNo Family History Records FoundNo Family History Records FoundNo Family History Records FoundNo Family History Records FoundNo Family History Records Found Additional Source Comments Reason for Visit (unrecogniz ed section and content) Reason Comments Hypertension Reason Comments Physical Status Reason Specialty Diagnoses / Procedures Referred By Contact Referred To Contact New Request Radiology Diagnoses Neck fullness Procedures US Thyroid Only Maurice Asher MD [address] [place] [address] Reason Onset Date Comments Medication Refill 06/02/2020 Reason Onset Date Comments Medication Refill 08/03/2020 Reason Onset Date Comments Medication Refill 10/12/2020 Reason Onset Date Comments Medication Refill 02/01/2021 Reason Onset Date Comments Medication Refill 02/23/2021 Reason Onset Date Comments Medication Refill 03/24/2021 Reason Onset Date Comments Medication Refill 05/04/2021 Reason Comments Annual Exam Stated shes not doin g any blood work today due to insurance. INFORMATION SOURCE (unrecogn ized section and content) DATE CREATED AUTHOR 10/11/2019 [facility] DATE CREATED AUTHOR AUTHOR'S ORGANIZ ATION 01/14/2021 [facility] DATE CREATED AUTHOR AUTHOR'S ORGANIZ ATION 06/27/2021 [facility] DATE CREATED AUTHOR AUTHOR'S ORGANIZ ATION 02/17/2022 [facility] DATE CREATED AUTHOR AUTHOR'S ORGANIZ ATION 09/14/2022 [facility] DATE CREATED AUTHOR AUTHOR'S ORGANIZ ATION 01/23/[address] [facility] EPIC Care Teams (unrecognized sec tion and content) Baseball Glove Stuffer Relationship Specialty Start Date End Date Maurice Asher MD [address] [place] [address] PCP - FRAN Attributed Provider - [employer] 05/26/20 Geoffrey Doll DO [address] [place] [address] PCP - General Internal Medicine 10/11/20 [employer] Relationship Specialty Start Date End Date Maurice Asher MD [address] [place] [address] PCP - FRAN Attributed Provider - [employer] 05/26/20 Geoffrey Doll DO [address] [place] [address] PCP - General Internal Medicine 10/11/20 [employer] Relationship Specialty Start Date End Date Geoffrey Doll DO [address] [place] [address] PCP - General Internal Medicine 12/10/20 Maurice Asher MD [address] [place] [address] PCP - FRAN Attributed Provider - [employer] 03/29/20 02/24/21 [employer] Relationship Specialty Start Date End Date Geoffrey Doll DO [address] [place] [address] PCP - General Internal Medicine 12/10/20 Maurice Asher MD [address] [place] [address] PCP - FRAN Attributed Provider - [employer] 03/29/20 02/24/21 [employer] Relationship Specialty Start Date End Date Geoffrey Doll DO [address] [place] [address] PCP - General Internal Medicine 12/10/20 Maurice Asher MD [address] [facility] [address] [place] [address] PCP - FRAN Attributed Provider - [employer] 03/29/20 02/24/21 [employer] Relationship Specialty Start Date End Date Geoffrey Doll DO [address] [place] [address] PCP - General Internal Medicine 12/10/20 Geoffrey Doll DO [address] [place] [address] PCP - FRAN Attributed Provider - [employer] 03/29/20 02/24/21 [employer]uffer Relationship Specialty Start Date End Date Geoffrey Doll DO [address] [place] [address] PCP - General Internal Medicine 12/10/20 [employer] Relationship Specialty Start Date End Date Geoffrey Doll DO [address] [place] [address] PCP - General Internal Medicine 12/10/20 [employer] Relationship Specialty Start Date End Date Geoffrey Doll DO [address] [place] [address] PCP - General Internal Medicine 12/10/20 Geoffrey Doll DO [address] [place] [address] PCP - FRAN Attributed Provider - [employer] 03/29/20 02/25/50 [employer] Gl[employer] Stuffer Relationship Specialty Start Date End Date Geoffrey Doll DO [address] [place] [address] PCP - General Internal Medicine 12/10/20 Geoffrey Doll DO [address] [place] [address] PCP - FRAN Attributed Provider - [employer] 03/29/20 02/25/50 [employer] Gl[employer] Stuffer Relationship Specialty Start Date End Date Geoffrey Doll DO [address] [place] [address] PCP - General Internal Medicine 12/10/20 Geoffrey Doll DO [address] [place] [address] PCP - FRAN Attributed Provider - [employer] 03/29/20 02/25/50 [employer] Glove Stuffer Relationship Specialty Start Date End Date Geoffrey Doll DO [address] [place] [address] PCP - General Internal Medicine 12/10/20 Geoffrey Doll DO [address] [place] [address] PCP - FRAN Attributed Provider - [employer] 03/29/20 02/25/50 FOR RECORDS PERTAINING TO PATIENTS WHO ARE OR HAVE BEEN ENROLLED IN A CHEMICAL DEPENDENCY/SUBSTANCEABUSE PROGRAM, SOME INFORMATION MAY BE OMITTED. This clinical summary was aggregated from multiple sources. Caution should be exercised in using it in the provision of clinical care. This summary normalizes information from multiple sources, and as a consequence, information in this document may materially change the coding, format and clinical context of patient data. In addition, data may be omitted in some cases. CLINICAL DECISIONS SHOULD BE BASED ON THE PRIMARY CLINICAL RECORDS. [facility]. provides no warranty or guarantee of the accuracy or completeness of information in this document.
== END 2024-01-28 09:10 | disposition home or self-care (01) ==
PROVIDERS: PCP Nurse Practitioner Family; Visit Provider Nurse Practitioner Family
DX: Z12.31 Encounter for screening mammogram for malignant neoplasm of breast (principal); Z80.3 Family history of malignant neoplasm of breast
CPT/HCPCS: 77063; 77067

== ENCOUNTER 2025-02-09 08:49 | Outpatient (OUT) | payer MEDICARE, SELFPAY ==
--- NOTE | 2025-02-09 08:58 | MM_ITS ---
Patient Name: RICK DOCKERY MR#: [id number] : 1955 Exam Date: 02/09/2025 Ordering Doctor: SANDRINE JULIO CNP RADIOLOGY REPORT PROCEDURE: MM TOMOSYNTHESIS SCREENING BI COMPARISON: MM TOMOSYNTHESIS SCREENING BI, 01/28/2024. MM TOMOSYNTHESIS SCREENING BI, 01/19/2023. MG MAMM SCREEN 3D [place] CAD, 12/27/2021. MG MAMM SCREEN 3D [place] CAD, 09/03/2020. INDICATIONS: Screening Calculator Name NCI Breast Cancer Risk Assessment Tool 5 Year Breast Cancer Risk 3.90% Lifetime Breast Cancer Risk 13.00% Personal Breast Cancer No Personal Ovarian Cancer No Treatments None Family Cancers Aunt-maternal with breast cancer at age 83; Sister with breast cancer at age 67. LOCATION: [facility] BREAST COMPOSITION: The breasts are heterogeneously dense, which may obscure small masses. FINDINGS: RIGHT BREAST: No significant suspicious finding. Stable postoperative changes. LEFT BREAST: No significant suspicious finding. DIAGNOSTIC CATEGORY 1--NEGATIVE. RECOMMENDATIONS: ROUTINE MAMMOGRAM AND CLINICAL EVALUATION IN 12 MONTHS. Dictated by: Porfirio Dodd DO on 02/09/2025 at 10:34 Approved by: Porfirio Dodd DO on 02/09/2025 at 10:36
== END 2025-02-09 08:50 | disposition home or self-care (01) ==
LOC: MAMMO 08:49
PROVIDERS: PCP Nurse Practitioner Family; Visit Provider Nurse Practitioner Family
DX: Z12.31 Encounter for screening mammogram for malignant neoplasm of breast (principal); Z80.3 Family history of malignant neoplasm of breast
CPT/HCPCS: 77063; 77067